=== PATIENT | male | born 1945 | race Caucasian/White ===

== ENCOUNTER 2017-08-10 06:58 | Emergency (ER) | payer MEDICARE, OTHER ==
[2014-09-11 06:08] VITALS: BMI 24.2
[~2017-08-10 06:58] MED LIST: COREG6.25 MG PO; DIOVAN80 MG PO; EFFIENT10 MG PO; HYDROCODONE-APA1 TAB PO; LIPITOR80 MG PO; VITAMIN D3400 UNI1 PO
[2017-08-10 07:50] LABS: BASOPHILS 0.2 % (0-2); EOSINOPHILS 3.2 % (0-7); HEMOGLOBIN 15.6 g/dL (13.5-17.5); IMMATURE GRANULOCYTES 0.2 % (0-5); LYMPHOCYTES 23.6 % (15-50); MCH 32.2 pg (26.0-34.0); MCHC 34.7 g/dL (31.0-37.0); MEAN PLATELET VOLUME 10.9 fL (7.4-10.4); MONOCYTES 11.9 % (2-11); NEUTROPHILS 60.9 % (40-80); PLATELET COUNT 155 10x3/uL (130-400); RBC 4.84 10x6/uL (4.20-6.10); RDW 13.2 % (11.5-14.5)
[2017-08-10 08:02] LABS: ALBUMIN 3.6 g/dL (3.4-5.0); ANION GAP 13.2 mmol/L (8-16); BILIRUBIN - TOTAL 0.72 mg/dL (0.2-1.3); CALCIUM 9.4 mg/dL (8.5-10.1); CREATININE - SERUM 1.1 mg/dL (0.6-1.3); POTASSIUM - SERUM 4.2 mmol/L (3.5-5.1); PROTEIN - SERUM 7.6 g/dL (6.4-8.2)
[2017-08-10 08:14] LABS: APPEARANCE HAZY (CLEAR); BILIRUBIN NEGATIVE (NEGATIVE); COLOR YELLOW (YELLOW); GLUCOSE NEGATIVE (NEGATIVE); KETONE NEGATIVE (NEGATIVE); NITRITE NEGATIVE (NEGATIVE); PROTEIN NEGATIVE (NEGATIVE); SPECIFIC GRAVITY 1.015 (1.005-1.020); UROBILINOGEN NORMAL (NORMAL)
[2017-08-11] MEDS ORDERED: TIROSINT25 MCG PO (05:57)
== END 2017-08-10 09:32 | disposition home or self-care (01) ==
LOC: D.ER 06:58
PROVIDERS: Emergency Medicine
DX: K57.90 Diverticulosis of intestine, part unspecified, without perforation or abscess without bleeding (principal)

== ENCOUNTER 2017-08-10 12:47 | Inpatient (IN) | payer MEDICARE, OTHER ==
[~2017-08-10] VITALS: Ht 182.9 cm; Wt 75.1 kg
--- NOTE | ~2017-08-10 | PRO ---
PATIENT:MARIA G COLEMAN MEDICAL RECORD: [id number] : 43 LOCATION:D. D.2129 ADMISSION DATE: 08/10/17 PROCEDURE PERFORMED BY: SUSAN GORE MD DATE OF PROCEDURE: 08/11/2017 PROCEDURE: Fiberoptic bronchoscopy. INDICATION: Mr. Coleman is a 72-year-old gentleman who came in with hematemesis and nausea and vomiting. Now, the patient is orally intubated. The patient has greenish, yellowish pustular secretions. Fiberoptic bronchoscopy was carried out to inspect the airway for any aspiration as well to obtain specimen for culture and sensitivity. DESCRIPTION OF PROCEDURE: Fiberoptic bronchoscope was easily passed through the ET tube. The patient is intubated, just with a 7-mm ET tube. The main laureen was sharp. There was fresh clotted blood in the right main bronchus. There are no active bleeding. There were thick yellowish secretion on the right side. The subsegment to the right upper lobe, right middle lobe, right lower lobe within normal range. No endobronchial lesion was seen. The left main bronchus was normal. There was no foreign body was seen. There were thick yellowish secretions. The segment to the left upper lobe lingula, left lower lobe within normal range. No endobronchial lesion was seen. Specimen washing was obtained and sent for routine culture and sensitivity, AFB and fungus, and cytology. TRANSINT:[id number] Voice Confirmation ID: [id number] DOCUMENT ID: [id number] SUSAN GORE MD at 1340 CC: REECE PRUITT [id number] DICTATION DATE: 08/11/171743 BATON TWIRLER: 08/11/17 1835 DIS IN 08/16/17 [facility] [address] [place] [address]
--- NOTE | ~2017-08-10 | HP ---
PATIENT: MARIA G HERNANDEZ MEDICAL RECORD: [id number] ACCOUNT: [id number] LOCATION:[facility] D.2311 : 43 ADMISSION DATE: 08/10/17 HISTORY AND PHYSICAL EXAMINATION REASON FOR ADMISSION: Abdominal pain with hematemesis. HISTORY OF PRESENT ILLNESS: The patient is a 72-year-old male with no prior history of peptic ulcer disease who said he has been having some abdominal discomfort off and on, usually late at night for several months. He has had no change in stools or blood per rectum or dyspepsia. He has symptoms of gallbladder problems. He stated he woke up this morning about 07:00 a.m. and the pain was more severe in his epigastric area radiating around into his back and the mid spine. He came to the Emergency Room, was evaluated there with normal CBC and a CT scan that showed him to be constipated. He was sent home with laxatives. He said he had a bowel movement when he returned home that was normal and the pain became worse and he came back to the Emergency Room. While in the waiting area of the Emergency Room, he developed nausea and went into the bathroom and vomited jose bloody states. It was not confirmed by medical personnel, but he told the ER doctor this. That reason he has been now admitted into the ER to be admitted into the hospital for possible bleeding peptic ulcer. His blood pressure has been stable and he has followup H&H has not dropped as yet. He has no prior history of peptic ulcer disease, though does admit to late night dyspepsia. He is not alcohol drinker either. PAST HISTORY: CAD with PTCA in the past and restenosis for which he has been on Effient long-term. History of remote acute myocardial infarction, BPH, diverticulitis, dyslipidemia, erectile dysfunction, hypothyroidism, ophthalmic migraine, and gallbladder sludge. SURGICAL HISTORY: Hernia repair, lumbar laminectomy, and left inguinal hernia repair with mesh in 2015. FAMILY HISTORY: Father at age 96, he had CAD, prostate cancer. Mother with history of CAD, hypertension. SOCIAL HISTORY: Socially, he is a nonsmoker, nondrinker, retired colonel. He is to his second . IMMUNIZATION HISTORY: He has had Prevnar 13 and Fluzone this year. HOME MEDICATIONS: Valsartan 80 mg a day, atorvastatin 40 mg at bedtime, Coreg 6.25 mg p.o. b.i.d., Maxalt-[employer] 5 mg dissolved on tongue p.r.n. headache, vitamin D 400 units p.o. daily, levothyroxine 25 mcg p.o. q.a.m. a.c., MiraLax powder 17 grams p.o. daily for constipation, Viagra 25 mg p.r.n. intercourse, and Effient 10 mg p.o. daily. ALLERGIES: None mentioned. REVIEW OF SYSTEMS: GENERAL: He has felt well. No fever. HEENT: No recent visual change, sinus congestion, sore throat or hearing difficulty. He does wear glasses to read. RESPIRATORY: No SOB, cough, or hemoptysis. CARDIAC: No exertional chest pain, claudication, or edema. HISTORY AND PHYSICAL [id number] MARIA G HERNANDEZ GASTROINTESTINAL: As above. No recent solid food dysphagia or reflux symptoms or melenic stools. He states he did vomit bright red blood in the ED this morning. He has had nocturnal dyspepsia. He has had a history of gallbladder symptoms he states, but he has not been diagnosed with gallbladder disease. MUSCULOSKELETAL: He has lumbago without sciatica. GENITOURINARY: He has nocturia once or twice nightly. He has mild ED, response to Viagra. INTEGUMENTARY: No rash or itching. PSYCHIATRIC: Denies depress mood. PHYSICAL EXAMINATION: VITAL SIGNS: Blood pressure is 110/70, heart rate is 80 and regular, and O2 sat is 96% on room air. HEENT: Normocephalic. Eyes are clear. Pupils are reactive. EOMI. NECK: No bruits or masses. CHEST: Clear. HEART: Regular without murmur. PMI appropriate. ABDOMEN: Minimally tender in the epigastrium without rebound. Bowel sounds are active. Stool has been sent for occult blood. EXTREMITIES: No CC&E. NEUROLOGIC: Oriented to person, place, and time. Cranial nerves intact. Gait is normal. LABORATORY DATA AND DIAGNOSTIC STUDIES: His H&H is 15 and 44.6. White count 10,000, and platelet count 165,000. INR is 1.05. BMP is pending. CT of the abdomen and pelvis shows nonobstructive renal calculi bilaterally, diverticulosis throughout the descending and sigmoid colon, aortic atherosclerosis, degenerative disk changes in the lumbar spine. Chest x-ray shows evidence of previous granulomatous disease. ASSESSMENT: 1. Epigastric abdominal pain with witnessed hematemesis. 2. Coronary artery disease, on Effient. 3. Hypertension. 4. Hyperlipidemia. 5. Hypothyroidism. 6. Osteoarthritis of lumbar spine. 7. Benign prostatic hypertrophy. PLAN: The patient will be admitted to the ICU per Dr. Echeverria's request from GI. She has requested the patient be given IV platelets. He is on Protonix drip currently. Further workup pending clinical course. EGD will be done per her schedule. TRANSINT:[id number] Voice Confirmation ID: [id number] DOCUMENT ID: [id number] HISTORY AND PHYSICAL [id number] MARIA G HERNANDEZ TIMOTHY MD at 1437 CC: [id number] DICTATION DATE: 08/10/17 1735 AIRFREIGHT LOADING SUPERVISOR: 08/10/17 1824 ADM IN [facility] [address] [place] [address]
--- NOTE | ~2017-08-10 | CN ---
PATIENT NAME:MARIA G COLEMAN MEDICAL RECORD: [id number] : 43 LOCATION:. D.2129 ADMIT DATE: 08/10/17 ACCOUNT: [id number] CONSULTING PHYSICIAN: SUSAN GORE MD REFERRING PHYSICIAN: REECE PRUITT MD DATE OF CONSULTATION: 08/11/2017 CONSULT REQUESTING PHYSICIAN: Dina Echeverria MD REASON FOR CONSULTATION: Vent management. HISTORY OF PRESENT ILLNESS: Mr. Coleman is a 72-year-old gentleman, who came into the ER with large volume of throwing blood. The patient was taken to the GI lab and found out he has Rita-Cullen tear and that was injected. Post procedure, the patient was very lethargic and the patient was intubated for airway protection. Now, the patient orally intubated and sedated. The history was taken by reviewing the patient's chart, talking to the nursing staff. REVIEW OF SYSTEMS: As in history of present illness. PAST MEDICAL HISTORY: 1. Coronary artery disease. 2. History of DE. 3. History of skin cancer. PAST SURGICAL HISTORY: He had back surgery. He had cardiac catheterization and stent placement. ALLERGIES: There are no known drug allergies. MEDICATIONS: [employer] is reviewed. PERSONAL AND SOCIAL HISTORY: Smoking history unknown. Drinking history unknown. FAMILY HISTORY: Significant for cancer and cardiovascular diseases. PHYSICAL EXAMINATION: GENERAL: Now, the patient is orally intubated and sedated. VITAL SIGNS: The blood pressure 118/65, pulse is 67, respiration is 18, temperature is 99. SpO2 is 99% on assist control, 40% oxygen, mechanical ventilation. HEENT: Conjunctiva is pink. Sclerae nonicteric. Pupils equal, round, and reactive. NECK: Neck is supple. No JVD. CHEST: There is no wheeze. No rales. HEART: Rhythm regular, normal sound. No murmur. ABDOMEN: Abdomen is soft. Bowel sounds present. No hepatosplenomegaly. RECTAL: Deferred. EXTREMITIES: No cyanosis, no clubbing, no pedal edema. SKIN: The skin is warm. Normal turgor. CENTRAL NERVOUS SYSTEM: The patient is awake and alert. There is no obvious cranial nerve abnormality. CHEST RADIOGRAPH: There are bibasilar infiltrates. CONSULT REPORT [id number] MARIA G COLEMAN LABORATORY DATA: CBC: The WBC is 13.4, hemoglobin is 13.2, hematocrit is 38.7, and the platelet count 166. Chemistry: Sodium 140, potassium is 4, BUN is 28, creatinine 1.1, glucose 112. ABG: The pH is 7.42, pCO2 is 33.2, pO2 is 121. This was done on 50% oxygen, mechanical ventilation. IMPRESSION: 1. Acute hypoxic respiratory failure post procedure. 2. Bibasilar infiltrates, possible aspiration pneumonia at the time of vomiting blood and procedure. 3. Upper gastrointestinal bleed secondary to Rita-Cullen tear. 4. Anemia secondary to gastrointestinal bleed. 5. Coronary artery disease. 6. Leukocytosis. RECOMMENDATIONS: 1. We will continue the mechanical ventilation today. Start trying to wean him in the morning. Start him on empiric Zosyn. 2. Continue Protonix drip. 3. Deep vein thrombosis prophylaxis. 4. Follow up labs and chest radiograph. Dr. Echeverria, thank you for involving me in the care of Mr. Coleman. TRANSINT:[id number] Voice Confirmation ID: [id number] DOCUMENT ID: [id number] SUSAN GORE MD at 1340 CC: DINA ECHEVERRIA [id number] DICTATION DATE: 08/11/17 1030 PRINTER REPAIR TECHNICIAN: 08/11/17 1052 DIS IN 08/16/[address] [address]
[2017-08-10 13:56] LABS: BASOPHILS 0.1 % (0-2); EOSINOPHILS 0.1 % (0-7); HEMATOCRIT 44.6 % (42.0-54.0); HEMOGLOBIN 15.5 g/dL (13.5-17.5); IMMATURE GRANULOCYTES 0.2 % (0-5); LYMPHOCYTES 7.9 % (15-50); MCH 32.3 pg (26.0-34.0); MCHC 34.8 g/dL (31.0-37.0); MCV 92.9 fL (80.0-100.0); MEAN PLATELET VOLUME 11.4 fL (7.4-10.4); MONOCYTES 5.7 % (2-11); PLATELET COUNT 165 10x3/uL (130-400); RDW 13.2 % (11.5-14.5)
[2017-08-10 13:59] LABS: WBC 10.2 10x3/uL (4.8-10.8)
[2017-08-10 14:06] LABS: INR 1.05 (0.85-1.17); PROTIME 13.3 SECONDS (11.6-15.0)
[2017-08-10 18:20] LABS: HEMATOCRIT 38.3 % (42.0-54.0); HEMOGLOBIN 13.2 g/dL (13.5-17.5)
[2017-08-10 19:59] VITALS: BP 110/77; BMI 23.2
[2017-08-10 20:00] VITALS: BP 150/92
[2017-08-10 21:00] VITALS: BP 148/87
[2017-08-10 22:00] VITALS: BP 124/73
[2017-08-10 23:00] VITALS: BP 120/75
[2017-08-10 23:54] LABS: HEMATOCRIT 40.4 % (42.0-54.0); HEMOGLOBIN 13.7 g/dL (13.5-17.5)
[2017-08-11] VITALS (24 sets, daily range): BP systolic 108–150; BP diastolic 58–96; BMI 22.8
[2017-08-11 03:56] LABS: BASOPHILS 0 % (0-2); EOSINOPHILS 0.1 % (0-7); HEMATOCRIT 38.7 % (42.0-54.0); HEMOGLOBIN 13.2 g/dL (13.5-17.5); IMMATURE GRANULOCYTES 0.2 % (0-5); LYMPHOCYTES 9.3 % (15-50); MCH 31.5 pg (26.0-34.0); MCHC 34.1 g/dL (31.0-37.0); MCV 92.4 fL (80.0-100.0); MEAN PLATELET VOLUME 10.7 fL (7.4-10.4); MONOCYTES 16.4 % (2-11); PLATELET COUNT 166 10x3/uL (130-400); RBC 4.19 10x6/uL (4.20-6.10); RDW 14.3 % (11.5-14.5)
[2017-08-11 03:57] LABS: WBC 13.4 10x3/uL (4.8-10.8)
[2017-08-11 04:23] LABS: BILIRUBIN - TOTAL 0.84 mg/dL (0.2-1.3); CALCIUM 8.5 mg/dL (8.5-10.1); CREATININE - SERUM 1.1 mg/dL (0.6-1.3); PROTEIN - SERUM 6.4 g/dL (6.4-8.2)
[2017-08-11] MEDS ORDERED: TIROSINT25 MCG PO (05:57)
[2017-08-12] VITALS (24 sets, daily range): BP systolic 105–148; BP diastolic 60–83; Ht 182.9 cm; Wt 75.1 kg
[2017-08-12 04:18] LABS: BASOPHILS 0.1 % (0-2); EOSINOPHILS 0.3 % (0-7); HEMATOCRIT 37.5 % (42.0-54.0); HEMOGLOBIN 12.8 g/dL (13.5-17.5); IMMATURE GRANULOCYTES 0.3 % (0-5); LYMPHOCYTES 9.6 % (15-50); MCH 31.1 pg (26.0-34.0); MCHC 34.1 g/dL (31.0-37.0); MCV 91.2 fL (80.0-100.0); MEAN PLATELET VOLUME 10.9 fL (7.4-10.4); NEUTROPHILS 75.7 % (40-80); PLATELET COUNT 154 10x3/uL (130-400); RBC 4.11 10x6/uL (4.20-6.10); RDW 14.5 % (11.5-14.5); WBC 14.7 10x3/uL (4.8-10.8)
[2017-08-12 04:21] LABS: ANION GAP 13.6 mmol/L (8-16); CALCIUM 8.4 mg/dL (8.5-10.1); CARBON DIOXIDE 23.1 mmol/L (21.0-32.0); CREATININE - SERUM 1.2 mg/dL (0.6-1.3); POTASSIUM - SERUM 3.7 mmol/L (3.5-5.1)
[2017-08-12 19:08] LABS: AFB SPECIMEN PROCESSING Concentration (())
[2017-08-13] VITALS (14 sets, daily range): BP systolic 106–135; BP diastolic 65–82
[2017-08-13 03:44] LABS: BASOPHILS 0.1 % (0-2); EOSINOPHILS 3.2 % (0-7); HEMATOCRIT 38.3 % (42.0-54.0); IMMATURE GRANULOCYTES 0.3 % (0-5); LYMPHOCYTES 13.9 % (15-50); MCH 31.6 pg (26.0-34.0); MCHC 33.9 g/dL (31.0-37.0); MEAN PLATELET VOLUME 10.9 fL (7.4-10.4); MONOCYTES 11.9 % (2-11); NEUTROPHILS 70.6 % (40-80); PLATELET COUNT 136 10x3/uL (130-400); RBC 4.11 10x6/uL (4.20-6.10); RDW 14.3 % (11.5-14.5); WBC 11.8 10x3/uL (4.8-10.8)
[2017-08-13 03:50] LABS: MCV 93.2 fL (80.0-100.0)
[2017-08-13 03:55] LABS: ANION GAP 12.8 mmol/L (8-16); CALCIUM 8.8 mg/dL (8.5-10.1); CARBON DIOXIDE 26.2 mmol/L (21.0-32.0); CREATININE - SERUM 1.2 mg/dL (0.6-1.3)
[2017-08-14 00:30] VITALS: BP 125/69
[2017-08-14 06:24] VITALS: BP 137/71
[2017-08-14 08:21] VITALS: BP 147/67
[2017-08-14 10:06] LABS: BASOPHILS 0 % (0-2); EOSINOPHILS 1.8 % (0-7); HEMATOCRIT 36.2 % (42.0-54.0); HEMOGLOBIN 12.5 g/dL (13.5-17.5); IMMATURE GRANULOCYTES 0.2 % (0-5); LYMPHOCYTES 9.9 % (15-50); MCH 31.9 pg (26.0-34.0); MCHC 34.5 g/dL (31.0-37.0); MCV 92.3 fL (80.0-100.0); MEAN PLATELET VOLUME 10.4 fL (7.4-10.4); MONOCYTES 17.2 % (2-11); NEUTROPHILS 70.9 % (40-80); PLATELET COUNT 148 10x3/uL (130-400); RBC 3.92 10x6/uL (4.20-6.10); RDW 13.7 % (11.5-14.5); WBC 9.1 10x3/uL (4.8-10.8)
[2017-08-14 12:26] VITALS: BP 149/71
[2017-08-14 13:13] LABS: FUNGUS STAIN Final report (())
[2017-08-14 15:26] VITALS: BP 125/67
[2017-08-14 20:00] VITALS: BP 126/67
[2017-08-15] VITALS: BP 102/62
[2017-08-15 04:00] VITALS: BP 128/70
[2017-08-15 07:54] VITALS: BP 141/70
[2017-08-15 10:41] VITALS: BP 138/73
[2017-08-15 15:15] VITALS: BP 142/76
[2017-08-15 20:00] VITALS: BP 142/71
[2017-08-16] VITALS: BP 125/67
[2017-08-16 04:00] VITALS: BP 130/66
[2017-08-16 06:41] LABS: HEMATOCRIT 35.2 % (42.0-54.0); MCHC 34.1 g/dL (31.0-37.0); RBC 3.87 10x6/uL (4.20-6.10); RDW 13.5 % (11.5-14.5); WBC 7.5 10x3/uL (4.8-10.8)
[2017-08-16 06:48] LABS: PLATELET COUNT 182 10x3/uL (130-400)
[2017-08-16 06:54] LABS: CALC OSMOLALITY 276 mosm/kg (275-300); CALCIUM 8.7 mg/dL (8.5-10.1); CARBON DIOXIDE 25.9 mmol/L (21.0-32.0); CHLORIDE - SERUM 104 mmol/L (98-107); GLUCOSE 100 mg/dL (74-106); POTASSIUM - SERUM 3.6 mmol/L (3.5-5.1); SODIUM 138 mmol/L (136-145); UREA NITROGEN 15 mg/dL (7-18); eGFR NON AFRICAN AMERICAN 78 mL/min (90-120)
[2017-08-16] MEDS ORDERED: GUAIFENESI100 MG/5 M NG (07:31)
[2017-08-16] MEDS ORDERED: CARAFATE1 G/10 ML PO (07:32)
[2017-08-16] MEDS ORDERED: PROTONIX40 MG PO (07:33)
[2017-08-16] MEDS ORDERED: AUGMENTIN 500-11 TA1 PO (07:38)
[2017-08-16 07:41] LABS: ANISOCYTOSIS OCC; EOSINOPHILS 4 % (0-7); LYMPHOCYTES 17 % (15-50); MONOCYTES 21 % (2-11); NEUTROPHILS 56 % (40-80); PLATELET ESTIMATE NORMAL
[2017-08-16 07:54] VITALS: BP 133/71
[2017-09-08 17:11] LABS: FUNGUS MYCOLOGY CULTURE Final report (())
[2017-10-03 10:22] LABS: ACID FAST CULTURE Negative (()); ACID FAST SMEAR Negative (())
== END 2017-08-16 11:21 | disposition home or self-care (01) | DRG 208 ==
LOC: D.ER 12:47 → D.EDHOLD 15:26 → D.ICU 15:26 → D.M2 15:26 → D.ICU 19:31 → D.M2 08-13 17:00
PROVIDERS: Emergency Medicine; Family Medicine; Internal Medicine Gastroenterology
PROC: 5A1945Z Respiratory Ventilation, 24-96 Consecutive Hours (ICD-10-PCS; 2017-08-10)
PROC: 3E0G8GC Introduction of Other Therapeutic Substance into Upper GI, Via Natural or Artificial Opening Endoscopic (ICD-10-PCS; principal; 2017-08-11)
PROC: 0W3P8ZZ Control Bleeding in Gastrointestinal Tract, Via Natural or Artificial Opening Endoscopic (ICD-10-PCS; 2017-08-11)
PROC: 0BD38ZX Extraction of Right Main Bronchus, Via Natural or Artificial Opening Endoscopic, Diagnostic (ICD-10-PCS; 2017-08-11)
DX: J69.0 Pneumonitis due to inhalation of food and vomit (principal); K22.6 Gastro-esophageal laceration-hemorrhage syndrome; J95.821 Acute postprocedural respiratory failure; J98.11 Atelectasis; D62 Acute posthemorrhagic anemia; K44.9 Diaphragmatic hernia without obstruction or gangrene; M47.816 Spondylosis without myelopathy or radiculopathy, lumbar region; I25.10 Atherosclerotic heart disease of native coronary artery without angina pectoris; Z95.5 Presence of coronary angioplasty implant and graft; N40.0 Benign prostatic hyperplasia without lower urinary tract symptoms; E78.5 Hyperlipidemia, unspecified; E03.9 Hypothyroidism, unspecified; K22.2 Esophageal obstruction

== ENCOUNTER 2017-08-21 10:47 | Emergency (ER) | payer MEDICARE, OTHER ==
[2017-08-12 10:50] VITALS: BMI 22.8
[~2017-08-21 10:47] MED LIST changes: +AUGMENTIN 500-11 TA1 PO; +CARAFATE1 G/10 ML PO; +GUAIFENESI100 MG/5 M NG; +PROTONIX40 MG PO; +TIROSINT25 MCG PO
[2017-08-21 11:28] LABS: BASOPHILS 0.3 % (0-2); EOSINOPHILS 3.1 % (0-7); HEMATOCRIT 40.7 % (42.0-54.0); HEMOGLOBIN 14.1 g/dL (13.5-17.5); IMMATURE GRANULOCYTES 0.8 % (0-5); LYMPHOCYTES 17.7 % (15-50); MCHC 34.6 g/dL (31.0-37.0); MCV 92.5 fL (80.0-100.0); MEAN PLATELET VOLUME 10.6 fL (7.4-10.4); MONOCYTES 22.5 % (2-11); NEUTROPHILS 55.6 % (40-80); WBC 7.4 10x3/uL (4.8-10.8)
[2017-08-21 11:31] LABS: PLATELET COUNT 287 10x3/uL (130-400)
[2017-08-21 11:39] LABS: ALBUMIN 3.1 g/dL (3.4-5.0); ALKALINE PHOSPHATASE 109 U/L (46-116); ALT (SGPT) 40 U/L (10-68); CALC OSMOLALITY 277 mosm/kg (275-300); CALCIUM 9.1 mg/dL (8.5-10.1); CARBON DIOXIDE 26.2 mmol/L (21.0-32.0); CHLORIDE - SERUM 103 mmol/L (98-107); CREATININE - SERUM 1.1 mg/dL (0.6-1.3); GLUCOSE 109 mg/dL (74-106); POTASSIUM - SERUM 4.6 mmol/L (3.5-5.1); PROTEIN - SERUM 7.5 g/dL (6.4-8.2); SODIUM 138 mmol/L (136-145); UREA NITROGEN 15 mg/dL (7-18); eGFR NON AFRICAN AMERICAN 70 mL/min (90-120)
[2017-08-21 11:46] LABS: INR 1.05 (0.85-1.17); PROTIME 13.3 SECONDS (11.6-15.0)
[2017-08-21 11:52] LABS: CHOL - HDL RATIO 4.9 ratio (2.3-4.9); CHOLESTEROL, TOTAL 162 mg/dL (0-200); CKMB 0.8 U/L (0.0-3.6); CREATINE KINASE 66 UL (21-232); HDL CHOLESTEROL 33 mg/dL (32-96); LDL CHOLESTEROL 103 mg/dL (0-100); LDL-HDL RATIO 3.1 ratio (1.5-3.5); LIPASE 274 U/L (73-393); MAGNESIUM - SERUM 2.1 mg/dL (1.8-2.4); PRO BNP 237 pg/mL (0-125); THYROID STIMULATING HORMONE 2.93 uIU/mL (0.36-3.74); TRIGLYCERIDE 134 mg/dL (30-200); TROPONIN-I < 0.017 ng/mL (0.000-0.060)
[2017-08-21 12:01] LABS: D-DIMER-QUANTITATIVE 4.16 ug/mLFEU (0.20-0.54)
== END 2017-08-21 14:52 | disposition home or self-care (01) ==
LOC: D.ER 10:47
PROVIDERS: Family Medicine; Nurse Practitioner Family
DX: R07.9 Chest pain, unspecified (principal); R10.13 Epigastric pain; K21.9 Gastro-esophageal reflux disease without esophagitis; E03.9 Hypothyroidism, unspecified

== ENCOUNTER 2017-09-12 11:37 | Observation (INO) | payer MEDICARE, OTHER ==
[~2017-09-12] VITALS: Ht 182.9 cm; Wt 77.3 kg
--- NOTE | ~2017-09-12 | HP ---
PATIENT: MARIA G HERNANDEZ MEDICAL RECORD: [id number] ACCOUNT: [id number] LOCATION:D.MS Garcia2223 : 43 ADMISSION DATE: 09/12/17 HISTORY AND PHYSICAL EXAMINATION REASON FOR ADMISSION: Acute onset of confusion, visual disturbance. HISTORY OF PRESENT ILLNESS: The patient is a 72-year-old male with history of coronary artery disease, who underwent Hemoclips placed in his gastric ulcer on 08/10/17. He has done well since that time from a GI standpoint. Today, he had played pickleball with his , and at about 11 o'clock in the morning, became confused, did not know who she was or where he was. He had no obvious motor deficit, just confusion and trouble with his vision. He came to the Emergency Room with these complaints was seen by Dr. Gonzalez. The family was informed that neurology was not available and they requested to be treated at [facility]. He denies headache at this time. He denies visual change, but will not focus well; and answers questions inappropriately. PAST MEDICAL HISTORY: Recent gastric ulcer with Hemoclips placed on 08/10/17 with upper GI bleed and transfusion. CAD with PTCA in the past and restenosis, for which he had been on Effient until recently; history of remote acute myocardial infarction; BPH; diverticulitis; dyslipidemia; hypothyroidism; ophthalmic migraine; history of gallbladder sludge; erectile dysfunction. SURGICAL HISTORY: Hernia repair, lumbar laminectomy, left inguinal hernia repair with mesh in 2014, Hemoclips placed on gastric bleed on gastric bleeder 08/11/17. FAMILY HISTORY: Mother with history of CAD, hypertension. Father at 96 with CAD, prostate cancer. SOCIAL HISTORY: Nonsmoker. 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 ALLERGIES: None mentioned. HOME MEDICATIONS: Coreg 6.25 mg b.i.d., valsartan 80 mg p.o. daily, aspirin 81 mg a day, levothyroxine 25 mg capsule daily. REVIEW OF SYSTEMS: Obtained from his . GENERAL: He has not been fatigued. HEENT: Visual change appearing acutely today at 11 o'clock. Denies headache. RESPIRATORY: No SOB or cough. CARDIAC: No chest pain or claudication. GI: No nausea, vomiting, change in stools, or blood per rectum. : He has nocturia once nightly. MUSCULOSKELETAL: He has arthralgias in lumbar spine without sciatica. PSYCH: Denies depress mood. NEURO: At this time, he is unsure of where he is. He does not know who his or I am. He has poor eye contact. He has good plate stacker in his upper and lower extremities bilaterally. His gait is normal. His speech is clear but nonsensical and he does not answer questions appropriately. He complains he needs to urinate but does not know what to do at the urinal. INTEGUMENT: Denies itching or rash. HISTORY AND PHYSICAL [id number] MARIA G HERNANDEZ PHYSICAL EXAMINATION: VITAL SIGNS: Temperature 98.5 Fahrenheit orally, pulse 68 and regular, respirations are 20, blood pressure 134/75 with sat of 100% on room air. GENERAL: The patient is awake but disoriented to person, place, and time. He is not combative. HEENT: Normocephalic. Eyes are clear. Pupils reactive. He cannot count 1 or 2 fingers, I am not sure he understands my questions. Ears are clear. NECK: Supple without bruits or masses. CHEST: Clear. HEART: Regular rate without murmur. ABDOMEN: Soft, nontender. Bowel sounds are active. : Deferred. EXTREMITIES: No CC&E. NEUROLOGICAL: He is disoriented to person, place, and time. He speaks but is nonsensical. His speech is not slurred. His plate stacker is equal in upper and lower extremities. Babinski's are negative. Gait is unremarkable. DIAGNOSTIC DATA: CT scan of the brain, noncontrast, shows atrophy with no acute changes. Chest x-ray is unremarkable. Carotid Doppler shows minimal carotid atherosclerosis without significant velocities noted. His blood sugar is 103. His H&H is 14.7 and 44.1 respectively with platelet count of 236,000. INR is 1.01. Electrolytes are normal. Alk phos is 131. Cardiac enzymes are negative. TSH is 2.21. ASSESSMENT: 1. TIA versus CVA. 2. Known CAD with atherosclerosis. 3. Recent upper GI bleed due to gastric ulcer with Hemoclips placed. 4. Hypothyroidism. 5. Essential hypertension. 6. Hyperlipidemia. 7. BPH. PLAN: The patient will be admitted to neuro floor for neuro checks. We will obtain abdominal x-ray to make sure Hemoclips have passed and we will order MRI if Hemoclips are not visualized. Discussed with and son-in-law. Further workup pending clinical course. TRANSINT:[id number] Voice Confirmation ID: [id number] DOCUMENT ID: [id number] REECE PRUITT MD at 0532 CC: [id number] DICTATION DATE: 09/12/171737 EYEWEAR MANUFACTURING SUPERVISOR: 09/12/17 1857 DIS IN 09/13/17 [facility] [address] [place] [address]
--- NOTE | ~2017-09-12 | EC ---
PATIENT:MARIA G HERNANDEZ DATE OF SERVICE: 09/12/17 SEX: M MEDICAL RECORD: [id number] DATE OF : 43 LOCATION:D.MS Garcia222 AGE OF PATIENT: 72 ADMISSION DATE: 09/12/17 REFERRING PHYSICIAN: INTERPRETING PHYSICIAN: AKIN SERRANO MD ECHOCARDIOGRAM REPORT ECHO CHARGES 5 ECHO LIMITED Date: 09/12 CLINICAL DIAGNOSIS: BUBBLE STUDY FOR TIA ECHOCARDIOGRAPHIC MEASUREMENTS (adult normal given) AC root (d.<3.7cm) cm LV Septum d (<1.2 cm> 1.4 cm Valve Excursion cm LV Septum (systole) 1.5 cm Left Atria (s.<4.0cm> 4.4 cm LVPW d(<1.2cm) 1.6 cm RV (d.<2.3cm) cm LVPW (sytole) 14.7 cm LV diastole(<5.6CM) 5.3 cm MV E-F(>70mm/sec) cm LV systole 4.2 cm LVOT Diameter cm MV exc.(>10mm) cm Est.ejection fraction (50-75%) % DOPPLER: LVIT cm/sec A cm/sec E cm/sec LA cm/sec RVSP mmHg LVOT cm/sec AOP1/2T m/s Asc. Ao cm/sec RVOT cm/sec RA cm/sec PA cm/sec AV Gradient Peak mmHg AV Mean mmHg AV Area cm MV Gradient Peak mmHg MV Mean mmHg MV Area cm COMMENTS: Alteration Workroom Supervisor: Jackie NAILS Surfboard Designer: 1 Dr. Serrano TAPE# PACS Pericardial Effusion N DATE OF SERVICE: 09/13/2017 PROCEDURE: Echocardiogram with bubble study. INDICATIONS: CVA. FINDINGS: 1. Left ventricular chamber size is within normal limits. Left ventricular systolic function is normal. Overall ejection fraction estimated at 50%. 2. Left atrium, right atrium, and right ventricular chamber sizes are within ECHOCARDIOGRAM REPORT [id number] MARIA G HERNANDEZ normal limits. 3. Valvular structures have normal structure and motion. 4. Doppler interrogation reveals no significant valvular insufficiency or stenosis. 5. Bubble study was performed. There is no evidence of qici-wd-mfwvh or uaeiz-yb-kjfl shunt. 6. No cardiac source of neurologic emboli. TRANSINT:[id number] Voice Confirmation ID: [id number] DOCUMENT ID: [id number] AKIN SERRANO MD at 1056 CC: [id number] DICTATION DATE: 09/13/17 0938 LADLE PATCHER: 09/13/17 1053 DIS IN 09/13/17 [facility] [id number] [place] [address]
[2017-09-12 11:59] LABS: BASOPHILS 0.3 % (0-2); EOSINOPHILS 3.8 % (0-7); HEMATOCRIT 44.1 % (42.0-54.0); HEMOGLOBIN 14.7 g/dL (13.5-17.5); IMMATURE GRANULOCYTES 0.4 % (0-5); LYMPHOCYTES 25.7 % (15-50); MCH 31.2 pg (26.0-34.0); MCHC 33.3 g/dL (31.0-37.0); MCV 93.6 fL (80.0-100.0); MEAN PLATELET VOLUME 10.9 fL (7.4-10.4); MONOCYTES 10.7 % (2-11); NEUTROPHILS 59.1 % (40-80); PLATELET COUNT 236 10x3/uL (130-400); RBC 4.71 10x6/uL (4.20-6.10); RDW 13.7 % (11.5-14.5); WBC 6.8 10x3/uL (4.8-10.8)
[2017-09-12 12:22] LABS: ALBUMIN 3.5 g/dL (3.4-5.0); ALKALINE PHOSPHATASE 131 U/L (46-116); ALT (SGPT) 27 U/L (10-68); BILIRUBIN - TOTAL 0.47 mg/dL (0.2-1.3); CALC OSMOLALITY 278 mosm/kg (275-300); CALCIUM 9.5 mg/dL (8.5-10.1); CARBON DIOXIDE 27.1 mmol/L (21.0-32.0); CHLORIDE - SERUM 103 mmol/L (98-107); CREATININE - SERUM 1.2 mg/dL (0.6-1.3); GLUCOSE 119 mg/dL (74-106); POTASSIUM - SERUM 4.7 mmol/L (3.5-5.1); PROTEIN - SERUM 8.1 g/dL (6.4-8.2); SODIUM 139 mmol/L (136-145); UREA NITROGEN 12 mg/dL (7-18); eGFR NON AFRICAN AMERICAN 63 mL/min (90-120)
[2017-09-12 12:34] LABS: CKMB 1.5 U/L (0.0-3.6); TROPONIN-I < 0.017 ng/mL (0.000-0.060)
[2017-09-12 12:50] LABS: INR 1.01 (0.85-1.17); PROTIME 12.9 SECONDS (11.6-15.0)
[2017-09-12 19:52] VITALS: BP 124/50; Ht 182.9 cm; Wt 77.3 kg
[2017-09-12 20:00] VITALS: BP 124/50
[2017-09-12 23:56] VITALS: BP 115/57
[2017-09-13 04:00] VITALS: BP 135/69
[2017-09-13 06:03] LABS: BASOPHILS 0.1 % (0-2); EOSINOPHILS 1.3 % (0-7); HEMATOCRIT 36.6 % (42.0-54.0); HEMOGLOBIN 12.2 g/dL (13.5-17.5); IMMATURE GRANULOCYTES 0.3 % (0-5); LYMPHOCYTES 25.8 % (15-50); MCH 30.9 pg (26.0-34.0); MCHC 33.3 g/dL (31.0-37.0); MCV 92.7 fL (80.0-100.0); MEAN PLATELET VOLUME 11.3 fL (7.4-10.4); MONOCYTES 12.8 % (2-11); NEUTROPHILS 59.7 % (40-80); PLATELET COUNT 204 10x3/uL (130-400); RBC 3.95 10x6/uL (4.20-6.10)
[2017-09-13 06:05] LABS: WBC 8.6 10x3/uL (4.8-10.8)
[2017-09-13 06:08] LABS: CALC OSMOLALITY 277 mosm/kg (275-300); CALCIUM 8.6 mg/dL (8.5-10.1); CARBON DIOXIDE 25.5 mmol/L (21.0-32.0); CHLORIDE - SERUM 106 mmol/L (98-107); GLUCOSE 95 mg/dL (74-106); POTASSIUM - SERUM 3.8 mmol/L (3.5-5.1); SODIUM 140 mmol/L (136-145); UREA NITROGEN 11 mg/dL (7-18); eGFR NON AFRICAN AMERICAN 78 mL/min (90-120)
[2017-09-13 08:41] VITALS: BP 121/63
[2017-09-13 11:46] VITALS: BP 176/56
[2017-09-13 16:11] VITALS: BP 118/59
[2017-09-13] MEDS ORDERED: ASPIRIN325 MG PO (17:59)
[2017-09-13] MEDS ORDERED: LIPITOR80 MG PO (18:03)
[2017-09-13] MEDS ORDERED: PEPCID20 MG PO (18:05)
== END 2017-09-13 18:41 | disposition home or self-care (01) ==
LOC: D.ER 11:37 → D.EDHOLD 13:23 → OBSVTIME 13:23 → D.MS 13:30
PROVIDERS: Emergency Medicine; Family Medicine
DX: R41.0 Disorientation, unspecified (principal); G43.909 Migraine, unspecified, not intractable, without status migrainosus; H53.9 Unspecified visual disturbance; I25.10 Atherosclerotic heart disease of native coronary artery without angina pectoris; N40.0 Benign prostatic hyperplasia without lower urinary tract symptoms; E78.5 Hyperlipidemia, unspecified; E03.9 Hypothyroidism, unspecified; I10 Essential (primary) hypertension; I25.2 Old myocardial infarction; R47.01 Aphasia; R42 Dizziness and giddiness; R47.81 Slurred speech

== ENCOUNTER 2018-05-15 | Observation (INO) | payer MEDICARE, OTHER ==
[~2018-05-15] VITALS: Ht 182.9 cm; Wt 79.4 kg
[2018-05-15] VITALS (7 sets, daily range): BP systolic 113–141; BP diastolic 56–78; BMI 23.8
[~2018-05-15] MED LIST changes: +ASPIRIN325 MG PO; +PEPCID20 MG PO
--- NOTE | ~2018-05-15 | MORECARE ---
CASE MANAGEMENT DISCHARGE SUMMARY PATIENT: MARIA G HERNANDEZ UNIT: [id number] ADM DATE: 05/15/18 AGE: 72 : 44 SEX: M ROOM/BED: D.2119 AUTHOR: RULA CELESTE PHYSICIAN: REFERRING PHYSICIAN: REECE PRUITT MD DATE OF SERVICE: 05/21/18 Discharge Plan Patient Name: MARIA G HERNANDEZ [facility] [facility] 1945 Planned Disposition: Home Anticipated Discharge Date: 05/18/18 Discharge Date: 05/18/2018 Expected LOS: 3 Initial Reviewer: [email or web address] Initial Review Date: 05/21/2018 Generated: 05/21/18 12:34 pm Coverage Notice Reviewer: [email or web address] Mago Constantino Notice Issued Date-Time: 05/15/2018 11:35 Notice Type: Medicare Outpatient Observation Notice Notice Delivered To: Patient Relationship to Patient: Self Armoured Car Escort Name: Delivery Method: HAND - Hand Delivered Birgit Days: Prior Verbal Notification: Recipient Understood Notice: Yes Recipient Signature: Yes Med Rec Note Co-signed by Attending: Coverage Notice Comment: VERBAL PERMISSION OBTAINED TO DISCUSS IN THE PRESENCE OF HIS NGUYEN HERNANDEZ. Patient Name: MARI AG HERNANDEZ Page [id number] at 1135 All edits/amendments must be made on the electronic document DICTATION DATE: 05/21/18 113 ANCILLARY SERVICES MANAGER: YAMILKA 05/21/18 1134 RPT#: [id number] DC DATE:05/18/18 STATUS: DIS IN [facility] [address] [place] [address] END OF REPORT
--- NOTE | ~2018-05-15 | OP ---
PATIENT NAME: MARIA G HERNANDEZ MEDICAL RECORD: [id number] :43 LOCATION:D. D.2119 ADMISSION DATE:05/15/18 SURGEON: MART TABOR MD DATE OF OPERATION: 05/17/2018 PREOPERATIVE DIAGNOSES: 1. Acute cholecystitis. 2. Coronary artery disease. 3. Hyperlipidemia. POSTOPERATIVE DIAGNOSES: 1. Acute cholecystitis. 2. Coronary artery disease. 3. Hyperlipidemia. PROCEDURE: Laparoscopic cholecystectomy. SURGEON: Mart Tabor MD REPORT OF PROCEDURE: The patient's abdomen was prepped and draped in sterile fashion. A cutdown was made on the superior aspect of the umbilicus. Vicryls #0 were placed on the fascia bilaterally and the fascia was incised with #15 blade. I then bluntly entered the peritoneal cavity and placed a 12-mm Dustin port. Under direct visualization, a 5-mm trocar was placed in the epigastrium and two more 5-mm trocars were placed in the right subcostal region. The gallbladder was grasped and elevated. The cystic artery and cystic duct were dissected free. These were clipped proximally and distally and ligated in standard fashion. The gallbladder was taken off the liver bed using electrocautery and placed in the right upper quadrant. Any bleeding from the liver bed was then treated with electrocautery. At this point, the ports and insufflation were then removed and the gallbladder was taken out through the umbilicus. Upon removing the gallbladder through the umbilicus, it actually tore and there was a large spillage of bile. There were no stones present. We then irrigated out the umbilicus. The umbilical fascia was then closed with interrupted #0 Vicryls times 3. The wounds were then irrigated out one last time with saline and then infused with 10 mL of 0.25% Marcaine with epinephrine. The skin incisions were all closed with subcutaneous 5-0 Monocryl and dressed appropriately. COMPLICATIONS: None. CONDITION: Stable. ANESTHESIA: General endotracheal and local. BLOOD LOSS: Minimal. TRANSINT:[id number] Voice Confirmation ID: [id number] DOCUMENT ID: [id number] OPERATIVE REPORT [id number] MARIA G HERNANDEZ MART TABOR MD CC: [id number] DICTATION DATE: 05/17/18 152 BANDER: 05/17/18 1837 ADM [place] [address] [place] [address]
--- NOTE | ~2018-05-15 | HP ---
PATIENT: MARIA G HERNANDEZ MEDICAL RECORD: [id number] ACCOUNT: [id number] LOCATION:[address] : 43 ADMISSION DATE: 05/15/18 PCP: REECE PRUITT MD HISTORY AND PHYSICAL EXAMINATION REASON FOR ADMISSION: Postprandial abdominal pain with nausea. HISTORY OF PRESENT ILLNESS: The patient is a 72-year-old male with past history of coronary artery disease, hospitalized in August of this year for nausea, vomiting and Rita-Cullen tear. He was off of his Effient for several months and that was resumed recently by his molder pipe covering. He said he had known he had gallbladder sludge for some time, but he deferred surgery. Over the last week, he has had every other day postprandial qtb-ge-afrvh abdominal discomfort that radiates in his right upper quadrant and back. He feels bloated and nauseated, but sometimes has loose stool. The pain was fairly severe last night after a meal and he came to the ED. He denies fever, recent blood per rectum or vomiting blood. Denies any recent exertional chest pain or dyspnea on exertion. PAST MEDICAL HISTORY: Rita-Cullen tear, 08/2017; history of gastric ulcer with Hemoclips placed, 08/2017; upper GI bleed and transfusion; CAD; PTCA in the past and restenosis for which she has had Effient; history of remote acute myocardial infarction; BPH; diverticulitis; dyslipidemia; hypothyroidism; erectile dysfunction; ophthalmic migraines. PAST SURGICAL HISTORY: Hernia repair; lumbar laminectomy; left inguinal hernia repair with mesh in 2014; Hemoclips placed for gastric bleeder, 08/11/2017. FAMILY HISTORY: Father at 96 with CAD, prostate cancer. Mother with history of CAD, hypertension. SOCIAL HISTORY: Rare wine drinker, nonsmoker, retired colonel. He is to his second . HOME MEDICATIONS: Effient 10 mg p.o. daily; Lipitor 80 mg p.o. with evening meal; Coreg 6.25 mg p.o. b.i.d.; Diovan 80 mg p.o. at bedtime; aspirin 325 mg daily; Pepcid 20 mg p.o. b.i.d.; levothyroxine 25 mcg p.o. every morning, before meals. ALLERGIES: None known. REVIEW OF SYSTEMS: GENERAL: He has felt well until the last week. CONSTITUTIONAL: No recent fever. Good appetite. HEENT: No recent visual change, sinus congestion, sore throat or headache. RESPIRATORY: No SOB or cough, sputum production. CARDIAC: No exertional rest chest pain, claudication, edema or palpitations. GASTROINTESTINAL: Nausea postprandial, but not vomiting. He has had fatty food intolerance with some abdominal distention after eating, okg-zi-egnom abdominal pain radiates in his right upper quadrant and right shoulder. He has had no change in stools or blood per rectum. GENITOURINARY: Has nocturia once nightly. No dysuria plus frequency. MUSCULOSKELETAL: Denies arthralgias. NEUROLOGICAL: No history of stroke, TIA. No recent vascular headaches. Has a history ophthalmic migraine in the past. No memory loss or seizures. INTEGUMENT: No rash, itching or icterus. HISTORY AND PHYSICAL [id number] MRAIA G HERNANDEZ PSYCHIATRIC: Denies depressed mood. PHYSICAL EXAMINATION: VITAL SIGNS: Showed pulse of 59 and regular, respirations of 18, blood pressure 126/68, sat 97% on room air. GENERAL: The patient is alert and oriented. HEENT: Eyes are clear. Pupils are reactive. Mucous membranes unremarkable. NECK: Supple, without bruits or masses. CHEST: Clear. HEART: Regular rate and rhythm. ABDOMEN: Soft, throughout with active bowel sounds. No tenderness. No right upper quadrant tenderness or masses noted. RECTAL: Deferred. EXTREMITIES: No CCE. INTEGUMENT: No rash, icterus or lesions. No petechia. NEUROLOGIC: Oriented to person, place, and time. Cranial nerves are intact. Gait is normal. LABORATORY AND DIAGNOSTIC DATA: White count is 7000, H&H of 16 and 46 respectively with normal diff. Chemistry shows BUN of 27, creatinine of 1.3, glucose of 111 nonfasting, alkaline phosphatase is 143. Liver functions are normal. Lipase is normal. EKG shows sinus bradycardia with mild T-wave inversion laterally. No imaging has been done in the Emergency Room at this time. CT of abdomen and pelvis in August of this year showed nonobstructing calculi in bilateral kidneys, diverticulosis, aortic and pelvic atherosclerosis and normal appearing gallbladder. ASSESSMENT: 1. Abdominal pain. 2. Fatty food intolerance, possible acalculous cholecystitis. 3. History of coronary artery disease, on Effient. 4. History of gastric ulcer with Rita-Cullen tear. 5. Hyperlipidemia. 6. Hypertension. PLAN: The patient will be held n.p.o., placed on IV fluids, obtain gallbladder ultrasound this morning. Surgical consult with Dr. Gtz who he has seen in the past concerning these symptoms. TRANSINT:[id number] Voice Confirmation ID: [id number] DOCUMENT ID: [id number] REECE PRUITT MD at 2114 CC: [id number] DICTATION DATE: 05/15/18745 BEARING PRESS MACHINE OPERATOR: 05/15/18 0932 ADM IN [facility] [address] [place] [address]
[2018-05-15 01:07] LABS: BASOPHILS 0.1 % (0-2); HEMATOCRIT 46.2 % (42.0-54.0); HEMOGLOBIN 16.2 g/dL (13.5-17.5); IMMATURE GRANULOCYTES 0.3 % (0-5); LYMPHOCYTES 18.4 % (15-50); MCH 32.6 pg (26.0-34.0); MCHC 35.1 g/dL (31.0-37.0); MEAN PLATELET VOLUME 10.8 fL (7.4-10.4); MONOCYTES 14.5 % (2-11); NEUTROPHILS 63.7 % (40-80); PLATELET COUNT 181 10x3/uL (130-400); RBC 4.97 10x6/uL (4.20-6.10); RDW 13.1 % (11.5-14.5)
[2018-05-15 01:30] LABS: ALBUMIN 3.4 g/dL (3.4-5.0); ALKALINE PHOSPHATASE 143 U/L (46-116); ALT (SGPT) 19 U/L (10-68); BILIRUBIN - TOTAL 0.33 mg/dL (0.2-1.3); CALC OSMOLALITY 284 mosm/kg (275-300); CALCIUM 8.8 mg/dL (8.5-10.1); CARBON DIOXIDE 29.4 mmol/L (21.0-32.0); CHLORIDE - SERUM 105 mmol/L (98-107); CREATININE - SERUM 1.3 mg/dL (0.6-1.3); GLUCOSE 111 mg/dL (74-106); POTASSIUM - SERUM 4.3 mmol/L (3.5-5.1); PROTEIN - SERUM 7.8 g/dL (6.4-8.2); SODIUM 140 mmol/L (136-145); UREA NITROGEN 27 mg/dL (7-18); eGFR NON AFRICAN AMERICAN 57 mL/min (90-120)
[2018-05-15 01:33] LABS: LIPASE 321 U/L (73-393); TROPONIN-I < 0.017 ng/mL (0.000-0.060)
[2018-05-15] MEDS ORDERED: EFFIENT10 MG PO (04:11)
[2018-05-16] VITALS: BP 101/58
[2018-05-16 04:00] VITALS: BP 112/60
[2018-05-16 05:50] LABS: BASOPHILS 0.2 % (0-2); EOSINOPHILS 2.9 % (0-7); HEMATOCRIT 45.7 % (42.0-54.0); HEMOGLOBIN 15.8 g/dL (13.5-17.5); IMMATURE GRANULOCYTES 0.2 % (0-5); LYMPHOCYTES 24.4 % (15-50); MCH 32.3 pg (26.0-34.0); MCHC 34.6 g/dL (31.0-37.0); MCV 93.5 fL (80.0-100.0); MEAN PLATELET VOLUME 11.3 fL (7.4-10.4); MONOCYTES 17.5 % (2-11); NEUTROPHILS 54.8 % (40-80); PLATELET COUNT 171 10x3/uL (130-400); RBC 4.89 10x6/uL (4.20-6.10); RDW 13.2 % (11.5-14.5); WBC 6.5 10x3/uL (4.8-10.8)
[2018-05-16 06:15] LABS: ALBUMIN 3.3 g/dL (3.4-5.0); ANION GAP 12.9 mmol/L (8-16); BILIRUBIN - DIRECT 0.26 mg/dL (0.00-0.30); BILIRUBIN - INDIRECT 0.87 mg/dL (0.00-1.00); BILIRUBIN - TOTAL 1.13 mg/dL (0.2-1.3); CALCIUM 8.7 mg/dL (8.5-10.1); CARBON DIOXIDE 26.1 mmol/L (21.0-32.0); CREATININE - SERUM 1.2 mg/dL (0.6-1.3); PROTEIN - SERUM 7.5 g/dL (6.4-8.2)
[2018-05-16 07:57] VITALS: BP 134/97
[2018-05-16 11:34] VITALS: BP 107/61
[2018-05-16 11:52] VITALS: Ht 182.9 cm; Wt 79.4 kg
[2018-05-16 16:07] VITALS: BP 116/63
[2018-05-16 20:00] VITALS: BP 115/65
[2018-05-17] VITALS: BP 124/70
[2018-05-17] MEDS ORDERED: LIPITOR40 MG PO (03:37)
[2018-05-17 04:00] VITALS: BP 149/83
[2018-05-17 07:54] VITALS: BP 131/72
[2018-05-17 11:02] VITALS: BP 126/74
[2018-05-17] MEDS ORDERED: NORCO-10 PO (15:28)
[2018-05-17 16:30] VITALS: BP 158/85
[2018-05-17 20:00] VITALS: BP 128/70
[2018-05-18 04:00] VITALS: BP 135/75
[2018-05-18 11:03] VITALS: BP 114/61
== END 2018-05-18 11:42 | disposition home or self-care (01) ==
LOC: D.ER → D.M2 03:43 → OBSVTIME 03:43 → D.M2 03:43
PROVIDERS: Family Medicine
DX: K80.00 Calculus of gallbladder with acute cholecystitis without obstruction (principal); I25.10 Atherosclerotic heart disease of native coronary artery without angina pectoris; Z95.5 Presence of coronary angioplasty implant and graft; E78.5 Hyperlipidemia, unspecified; N40.0 Benign prostatic hyperplasia without lower urinary tract symptoms; I10 Essential (primary) hypertension; E03.9 Hypothyroidism, unspecified; N52.9 Male erectile dysfunction, unspecified

== ENCOUNTER → 2019-01-09 08:39 | Outpatient (CLI) | payer MEDICARE, OTHER ==
[2018-05-16 11:52] VITALS: BMI 23.7
[~2019-01-09 08:39] MED LIST changes: +LIPITOR40 MG PO; +NORCO-10 PO
== END | disposition home or self-care (01) ==
LOC: D.HCCARDIO 08:39
PROVIDERS: ATTEND Internal Medicine Interventional Cardiology
DX: I25.10 Atherosclerotic heart disease of native coronary artery without angina pectoris (principal)

== ENCOUNTER → 2020-01-15 08:03 | Outpatient (CLI) | payer MEDICARE, OTHER ==
[2018-05-16 11:52] VITALS: BMI 23.7
--- NOTE | ~2020-01-15 | EC ---
PATIENT:MARIA G HERNANDEZ DATE OF SERVICE: 01/15/20 SEX: M MEDICAL RECORD: [id number] DATE OF : 43 LOCATION:[facility] AGE OF PATIENT: 74 ADMISSION DATE: 01/15/20 REFERRING PHYSICIAN: INTERPRETING PHYSICIAN: EDUARDO FOX MD ECHOCARDIOGRAM REPORT ECHO CHARGES 4 ECHO COMPLETE Date: 01/15/20 CLINICAL DIAGNOSIS: CAD/CARDIOMYOPATHY/ANGINA (HX AO.SCL/MR/TR) ECHOCARDIOGRAPHIC MEASUREMENTS (adult normal given) AC root (d.<3.7cm) 3.4 cm LV Septum d (<1.2 cm> 1.2 cm Valve Excursion 1.9 cm LV Septum (systole) 1.6 cm Left Atria (s.<4.0cm> 4.1 cm LVPW d(<1.2cm) 1.3 cm RV (d.<2.3cm) 3.3 cm LVPW (sytole) 1.6 cm LV diastole(<5.6CM) 5.2 cm MV E-F(>70mm/sec) cm LV systole 3.6 cm LVOT Diameter 2.1 cm MV exc.(>10mm) 1.6 cm Est.ejection fraction (50-75%) % DOPPLER: LVIT cm/sec A 65.0 cm/sec E 50.0 cm/sec LA cm/sec RVSP 25 mmHg LVOT 76 cm/sec AOP1/2T m/s Asc. Ao 109 cm/sec RVOT cm/sec RA cm/sec PA 115 cm/sec AV Gradient Peak 4.78 mmHg AV Mean 2.53 mmHg AV Area 2.4 cm MV Gradient Peak 1.99 mmHg MV Mean 0.91 mmHg MV Area cm COMMENTS: Freight Team Associate: 2 YONIS NAILS Film And Video Graphics Designer: 3 Dr. Hightower TAPE# PACS Pericardial Effusion N DATE OF SERVICE: Adequate 2D, color flow imaging, spectral Doppler and M-mode. Mild LVH. LV internal dimension is normal. Wall motion appears very mildly globally hypo with EF at lower limits of normal at 50%. Aortic valve is sclerosed without stenosis by Doppler interrogation. Left atrium minimally dilated at 4.1 cm. Mitral valve shows no prolapse. Trace MR. Right-sided chambers are grossly normal. Trace TR. ECHOCARDIOGRAM REPORT [id number] MARIA G HERNANDEZ TRANSINT:[id number] Voice Confirmation ID: [id number] DOCUMENT ID: [id number] EDUARDO FOX MD CC: [id number] DICTATION DATE: 01/16/20 1324 MEDICAL DEVICE SALES CONSULTANT: 01/16/20 232 DEP CLI 01/15/20 [place] [id number] [place] [id number]
== END | disposition home or self-care (01) ==
LOC: D.HCCARDIO 08:03 → D.HCCECHO 09:00
PROVIDERS: ATTEND Internal Medicine Cardiovascular Disease
DX: I25.10 Atherosclerotic heart disease of native coronary artery without angina pectoris (principal)

== ENCOUNTER 2020-01-29 06:21 | Day surgery (SDC) | payer MEDICARE, OTHER ==
[~2020-01-29] VITALS: Ht 182.9 cm; Wt 83.0 kg
--- NOTE | ~2020-01-29 | HEMODYNAMI ---
PATIENT:MARIA G HERNANDEZ MEDICAL RECORD: [id number] : 43 LOCATION:[facility] ADMISSION DATE: 01/29/20 Generatedon:01/29/20208:55 Patient name: MARIA G HERNANDEZ Patient #: [id number] SSN: : 1945 Date of study: 01/29/2020 Page: Of Hemodynamic Procedure Report Patient Data Patient Demographics Procedure consent was obtained First Name: MARIA G Gender: Male Last Name: MARY : 1945 Middle Initial: L Age: 74 year(s) Patient #: [id number] Race: Unknown Additional ID: [id number] Contact details Address: [address] [place] [address] [facility] State: [place] City: [place] Zip code: [address] Past Medical History Allergies: No known allergies Admission Admission Data Admission Date: 01/29/2020 Admission Time: 6:21 Procedure Procedure Types Cath Procedure Diagnostic Procedure LHC LHC w/Coronaries Sedation Charges Moderate Sedation up to 15 minutes Procedure Description Procedure Date Procedure Date: 01/29/2020 Procedure Start Time: 8:38 Procedure End Time: 8:52 Procedure Staff Name Function Ahsan Guillory MD Performing Physician Erlinda Sharp RN Nurse Nhi Spear RT Home Economist Consumer Service Bianka Alexandra RT Scrub Yael Juarez RT Monitor Procedure Data Cath Procedure Fluoroscopy Diagnostic fluoroscopy Total fluoroscopy Time: 0 time: 0 min min Diagnostic fluoroscopy Total fluoroscopy dose: 606 dose: 606 mGy mGy Contrast Material Contrast Material Type Amount (ml) Isovue 300 68 Entry Location Entry Primary Successful Side Size Upsize Upsize Entry Closure Guillen ccessful Closure Location (Fr) 1 (Fr) 2 (Fr) Remarks Device Remarks Radial Right 6 Fr Mechanical artery Short Compression Estimated blood loss: 10 ml Diagnostic catheters Device Type Used For End Catheter Placement DIAGNOSTIC [place] 110cm 5 Procedure Fr catheter ([id number]) Procedure Complications No complications Procedure Medications Medication Administration Route Dosage 0.9% NaCl I.V. 100 ml/hr Oxygen etCO2 Nasal cannula 2 l/min Lidocaine 2% added to field 20 Heparin Flush Bag added to field 2 bags (1000units/500ml NS) Radial Cocktail added to field 1 syringe (Verapamil 2mg/Nitro 400mcg/Heparin 1500units) Versed I.V. 2 mg Fentanyl I.V. 50 mcg Hemodynamics Rest Heart Rate: 60 (bpm) Pressure Samples Time Site Value (mmHg) Purpose Heart Use Rate(bpm) 8:39 LV 81/2,15 Snapshot 66 8:39 LV 116/1,12 Snapshot 66 8:40 LV 118/5,14 Snapshot 66 8:40 AO 99/60(81) Pullback 70 8:40 LV 97/9,10 Pullback 70 Gradients Valve Time Site 1 Site 2 Mean SEP/DFP Peak To Heart Use (mmHg) (sec/min) Peak Rate (mmHg) (bpm) Aortic 8:40 LV AO 0 4 0 70 97/9,10 99/60(81) Calculations Valve P-P Mean Valve Index Valve Source Name Gradient Area Flow (cm2) Aortic 0 0 0 0 Snapshots Pre Cath Intra NCS Post Cath Vital Signs Time Heart Resp SPO2 etCO2 NIBP (mmHg) Rhythm Pain Sedation Rate (ipm) (%) (mmHg) Status Level (bpm) 8:22:32 61 11 100 0 150/82(96) NSR 0 (11) 10(A) , No pain 8:26:54 58 5 100 0 144/73(117) SB 0 (11) 10(A) , No pain 8:31:10 57 12 100 27.7 130/77(92) SB 0 (11) 10(A) , No pain 8:35:28 57 11 100 9.7 132/59(103) SB 0 (11) 10(A) , No pain 8:39:44 68 14 100 29.2 127/66(94) NSR 0 (11) 10(A) , No pain 8:43:56 63 13 98 9.7 117/71(87) NSR 0 (11) 10(A) , No pain 8:48:06 67 11 99 29.9 127/69(87) NSR 0 (11) 10(A) , No pain 8:52:15 61 12 99 21.7 121/79(92) NSR 0 (11) 10(A) , No pain Medications Time Medication Route Dose Verified Delivered Reason Notes Ef fectiveness by by 8:21:46 0.9% NaCl I.V. 100 Ahsan Gallegoa used for ml/hr Pastora Aron procedure MD MALONEY 8:21:52 Oxygen etCO2 2 l/min Ahsan Gallegoa used for Nasal [place] Aron procedure cannula MD MALONEY 8:21:57 Lidocaine 2% added 20ml Ahsan Foreman for local to vial [facility] anesthetic field MD MUNROE 8:22:00 Heparin Flush added 2 bags Ahsan Foreman used for Bag to [facility] procedure (1000units/500ml field MD MUNROE NS) 8:22:08 Radial Cocktail added 1 Ahsan Foreman used for (Verapamil to syringe [facility] procedure 2mg/Nitro field MD MUNROE 400mcg/Heparin 1500units) 8:37:24 Versed I.V. 2 mg Ahsan Gallegoa for [facility] sedation MD MALONEY 8:37:28 Fentanyl I.V. 50 mcg Ahsan Coffey for [facility] sedation MD MALONEYcountry singer Log Time Note 7:58:36 Informed consent obtained and on chart 8:07:16 Procedure Status Elective Heart Cath (OP). 8:07:29 Erlinda Sharp RN sent for patient. Start room use. 8:07:31 Time tracking: Regular hours (M-F 7:00 - 5:00) 8:07:35 Plan of Care:Hemodynamics will remain stable., Cardiac rhythm will remain stable., Comfort level will be maintained., Respiratory function will remain adequate., Patient/ family verbilizes understanding of procedure., Procedure tolerated without complication., Recovers from procedure without complications.. 8:08:16 H&P Date Dictated: 01/07/2020 Within 30 days and on chart., H&P Addendum completed by physician on day of procedure. (MUST COMPLETE FOR ALL OUTPATIENTS). 8:08:34 Patient allergic to No known allergies 8:14:43 Patient received from Pre/Post Procedure Room to CCL 1 Alert and oriented. Tansferred to table in Supine position. 8:14:44 Warm blankets applied, and monty hugger turned on for patient comfort. 8:14:44 Correct patient and procedure confirmed by team. 8:14:45 ECG and BP/O2 sat monitors applied to patient. 8:21:24 Vital chart was started 8:21:46 0.9% NaCl 100 ml/hr I.V. was administered by Erlinda Sharp RN; used for procedure; Verbal order read back and verified. 8:21:52 Oxygen 2 l/min etCO2 Nasal cannula was administered by Erlinda Sharp RN; used for procedure; Verbal order read back and verified. 8:21:57 Lidocaine 2% 20ml vial added to field was administered by Ahsan Guillory MD; for local anesthetic; Verbal order read back and verified. 8:22:00 Heparin Flush Bag (1000units/500ml NS) 2 bags added to field was administered by Ahsan Guillory MD; used for procedure; Verbal order read back and verified. 8:22:08 Radial Cocktail (Verapamil 2mg/Nitro 400mcg/Heparin 1500units) 1 syringe added to field was administered by Ahsan Guillory MD; used for procedure; Verbal order read back and verified. 8:23:23 Baseline sample Acquired. 8:23:33 Full Disclosure recording started 8:23:36 Pre-procedure instructions explained to patient. 8:23:39 Family in patients room. 8:23:41 Patient NPO since Midnight. 8:23:43 Is the patient allergic to Iodine/contrast media? No. 8:23:45 Was the patient premedicated? Yes 8:23:46 Is patient on blood thinner?Yes 8:23:49 ACC The patient was administered the following blood thiners within the last 24 hours: ACCEffient 8:23:52 Patient diabetic? No. 8:24:00 Snore? Yes 8:24:02 Sleep apnea? Yes 8:24:08 Airway obstruction? No ? 8:24:15 Dentures? No ? 8:24:19 Patient pain scale 0/10 ?. 8:24:33 IV patent on arrival in left forearm with 0.9% NaCl at [facility]. 8:25:05 Right Radial & Right Groin area was prepped with chlora-prep and draped in sterile fashion 8:25:07 Alarms reviewed by Amy N. 8:25:07 Sharps counted by scrub and verified by Nasreen. 8:25:11 Physician paged 8:28:00 Physician arrived 8:36:25 --------ALL STOP TIME OUT------ 8:36:26 Final Timeout: patient, procedure, and site verified with staff and physician. All members of the team are in agreement. 8:36:29 Right Radial & Right Groin site verified by team. 8:36:33 Fire Safety Assessment: A--An alcohol-based skin anteseptic being used preoperatively., C--Open oxygen or nitrous oxide is being used., D--An ESU, laser, or fiber-optic light is being used. 8:36:37 Physical assessment completed. ASA score P 2 - A patient with mild systemic disease as per Ahsan Guillory MD. 8:37:02 Sedation plan: IV Moderate Sedation Medication:Versed, Fentanyl 8:37:07 Use device set Radial Dx or PCI 8:37:22 Procedure started. 8:37:24 Versed 2 mg I.V. was administered by Erlinda Sharp RN; for sedation; Verbal order read back and verified. 8:37:28 Fentanyl 50 mcg I.V. was administered by Erlinda Sharp RN; for sedation; Verbal order read back and verified. 8:37:31 ACIST Syringe (93811) opened to sterile field. 8:37:31 Medline Cath Pack ([id number]) opened to sterile field. 8:37:33 Bag Decanter (2002) opened to sterile field. 8:37:34 ACIST Hand Control (81390) opened to sterile field. 8:37:34 ACIST Manifold (74362) opened to sterile field. 8:37:37 MBrace Wrist Support (649704645) opened to sterile field. 8:37:39 EMERALD Guide Wire (471-180) opened to sterile field. 8:37:40 SHEATH 6FR RAIN (8470147) opened to sterile field. 8:38:05 Local anesthetic to right radial artery with Lidocaine 2% by Ahsan Guillory MD.INITIAL ACCESS ONLY 8:38:22 A 6 Fr Short sheath was inserted into the Right Radial artery 8:38:35 A DIAGNOSTIC [place] 110cm 5 Fr catheter (072114) was advanced over the wire and used for Procedure. 8:39:20 Zero performed for pressure channel P1 8:40:20 LV gram done using CAZARES 8:40:26 EF : 35 % 8:40:33 RCA angiography performed. 8:42:29 Catheter removed. 8:43:02 GUIDE 6FR XBLAD 3.5 catheter (94164302) opened to sterile field. 8:43:51 Proceeding to intervention. 8:44:06 6 Fr XBLAD3.5 guide catheter was inserted over the wire 8:46:30 TR BAND Standard (QGR13OAL) opened to sterile field. 8:49:37 multiple veiws taken with 6 fr for better visualization. 8:49:53 Guide catheter removed. 8:50:08 Sheath removed intact; hemostasis achieved with Mechanical Compression to the Right Radial artery. 8:50:25 Procedure ended.(Physican Out) 8:50:59 Flurop Dose total: 606 8:50:59 Fluoroscopy dose: 606 mGy 8:51:05 Dose Area Product 10766 mGy/cm. 8:51:11 Contrast amount:Isovue 300 68ml. 8:51:18 [place] band inflated with 10cc of air. 8:51:20 Insertion/operative site no bleeding no hematoma. 8:51:24 Post Procedure Pulses reassessed and unchanged 8:51:28 Post-procedure physical assessment completed. ASA score P 2 - A patient with mild systemic disease as per Ahsan Guillory MD. 8:51:31 Post procedure rhythm: unchanged. 8:51:34 Estimated blood loss: 10 ml 8:51:39 Post procedure instruction explained to patient.Patient verbalizes understanding. 8:51:59 Procedure type changed to Cath procedure, Diagnostic procedure, LHC, C w/Coronaries, Sedation Charges, Moderate Sedation up to 15 minutes 8:52:05 Procedure and supply charges have been captured, reviewed, submitted and are correct. 8:52:28 Procedure Complication : No complications 8:52:31 Vital chart was stopped 8:52:38 [facility] Findings: MVD- CABG consult 8:52:43 See physician's report for complete and final results. 8:52:44 Report given to Pre/Post Procedure Room. 8:52:54 Patient transfered to Pre/Post Procedure Room with Stretcher. 8:52:57 Procedure ended. 8:52:57 Full Disclosure recording stopped 8:53:03 End room use (Document Last) 8:55:07 Fluoroscopy time 00.00 minutes. Device Usage Item Name Manufacture Quantity Catalog Hospital Part Current Minima l Lot# / Number Charge Number Stock Stock Serial# Code [facility] 1 62984 555706 976780 [id number] 20 Syringe Medical (69661) Systems Inc Medline Medline 1 [id number] [id number] 38020 339103 5 Cath Pack ([id number]) Bag Microtek 1 466011 83810 849870 5 Decanter Medical Inc. () ACIST Hand Acist 1 50348 296302 654481 915854 5 Control Medical (12478) Systems Inc ACIST Acist 1 02903 681175 338028 729940 5 Manifold Medical (41450) Systems Inc MBrace Advanced 1 140-0250-00 788099 39598 373349 5 Wrist Vascular Support Dynamics ([id number]) EMERALD Cardinal 1 502-019 028863 486104 352893 5 Guide Wire Health (552-142) SHEATH 6FR Cardinal 1 [id number] 702164 0471805 356504 5 [facility] Health (7468332) DIAGNOSTIC Terumo 1 93-4989 277187 628819 001182 5 [place] 110cm 5 Fr catheter (632514) GUIDE 6FR Cardinal 1 [id number] 624922 147481 996158 10 XBLAD 3.5 Health catheter (56843690) TR BAND Terumo 1 [id number] 695411 177521 930073 40 Standard ([id number]) Signature Audit [place] Stage Time Signature Unsigned Intra-Procedure 01/29/2020 Yael Juarez 8:54:38 AM RT(R) Intra-Procedure 01/29/2020 Erlinda Sharp 8:55:08 AM RN Intra-Procedure 01/29/2020 Ahsan Iglesias 8:55:31 AM Daniel MUNROE [place] [address] [place] [address]
[2020-01-29] MEDS ORDERED: BAYER CHEWABLE81 MG PO (06:49)
[2020-01-29 07:09] VITALS: BP 149/79; BMI 24.8
[2020-01-29 07:44] LABS: BASOPHILS 0.2 % (0-2); EOSINOPHILS 3.2 % (0-7); HEMATOCRIT 44.1 % (42.0-54.0); HEMOGLOBIN 14.9 g/dL (13.5-17.5); IMMATURE GRANULOCYTES 0.2 % (0-5); LYMPHOCYTES 23.2 % (15-50); MCH 31.2 pg (26.0-34.0); MCHC 33.8 g/dL (31.0-37.0); MCV 92.3 fL (80.0-100.0); MEAN PLATELET VOLUME 10.6 fL (7.4-10.4); MONOCYTES 15.1 % (2-11); NEUTROPHILS 58.1 % (40-80); PLATELET COUNT 201 10x3/uL (130-400); RBC 4.78 10x6/uL (4.20-6.10); RDW 13.1 % (11.5-14.5); WBC 5.3 10x3/uL (4.8-10.8)
[2020-01-29 08:36] LABS: ANION GAP 11.8 mmol/L (8-16); CARBON DIOXIDE 23.8 mmol/L (21.0-32.0); CHOL - HDL RATIO 2.1 ratio (2.3-4.9); CREATININE - SERUM 1.1 mg/dL (0.6-1.3); LDL-HDL RATIO 0.9 ratio (1.5-3.5); POTASSIUM - SERUM 4.6 mmol/L (3.5-5.1)
--- NOTE | 2020-01-29 09:00 | NUR ---
PT RECEIVED VIA STRETCHER FROM ARABIC LINGUIST FOR RECOVERY. PT DROWSY, VERBALLY AROUSABLE. PT DENIES PAIN OR DISCOMFORT. IV PATENT INFUSING VIA L ARM PER ORDERS. PT PLACED ON CARDIAC MONITORS AND O2 VIA NC AT 2L. HR SB RATE 59, BP 124/68, RR 11, SAT 97. ZYPHER BAND AND IMMOBILIZER TO R WRIST/ARM, NO S/S HEMATOMA OR BLEEDING. ARM PINK AND WARM, CAP REFILL BRISK. CALL LIGHT IN REACH, AT BS.
--- NOTE | 2020-01-29 09:30 | NUR ---
PT RESTING COMFORTABLY. ZBAND AND IMMOBILIZER IN PLACE, NO S/S HEMATOMA OR BLEEDING NOTED. ARM PINK AND WARM, CAP REFILL BRISK. VSS AT PRESENT. CALL LIGHT IN REACH, AT BS
--- NOTE | 2020-01-29 10:15 | NUR ---
PT RESTING COMFORTABLY. ZBAND AND IMMOBILIZER IN PLACE, NO S/S HEMATOMA OR BLEEDING NOTED. CALL LIGHT IN REACH
--- NOTE | 2020-01-29 10:40 | NUR ---
DR GILLESPIE AT , DISCUSSING OPTIONS OF POTENTIAL CABG SURGERY. NO NEW ORDERS RECEIVED. 3CC AIR REMOVED FROM Z BAND NO BLEEDING OR S/S HEMATOMA NOTED. CRACKERS AND DRINK SERVED. PT DENIES PAIN OR NEEDS AT THIS TIME. VSS. CALL LIGHT IN REACH
--- NOTE | 2020-01-29 11:01 | NUR ---
3 ADD'L CC AIR REMOVED FROM Z BAND, NO BLEEDING NOTED.
--- NOTE | 2020-01-29 11:17 | NUR ---
DR FOX AT , DISCUSSED PROCEDURE RESULTS AND PLAN OF CARE. 2 MORE CC AIR REMOVED FROM Z BAND, NO BLEEDING NOTED. NO NEW ORDERS RECEIVED. IV REMOVED W CATH INTACT, MONITORS REMOVED. DISCHARGE INSTRUCTIONS REVIEWED W PT AND , BOTH VERBALIZED UNDERSTANDING..
--- NOTE | 2020-01-29 11:20 | NUR ---
PT UP TO DRESS FOR DISCHARGE W ASSIST FROM
--- NOTE | 2020-01-29 11:30 | NUR ---
PT AMBULATED TO BR, VOIDING W/O DIFFICULITY. ZBAND AND REMAINING AIR REMOVED, NO BLEEDING NOTED. 2X2 AND SM TEGADERM DRESSING APLIED. IMMOBILIZER REPOSTIONED. PT DISCHARGE VIA WC TO WAITING IN PRIVATE VEHICLE. PT HAD ALL BELONGINGS AND DISCHARGE INSTRUCTIONS
[2020-01-30 16:59] VITALS: Ht 182.9 cm; Wt 83.0 kg
--- NOTE | 2020-01-31 08:09 | OP ---
PATIENT NAME: MARIA G HERNANDEZ MEDICAL RECORD: [id number] :43 LOCATION:[facility] ADMISSION DATE: SURGEON: EDUARDO FOX MD DATE OF OPERATION: 01/29/2020 PROCEDURE: Left heart catheterization, selective coronary angiography, right radial approach. CATHETERS: Radial sheath, [place] catheter. The procedure was well tolerated. The patient returned to leon. Sheath removed. TR band was placed. FINDINGS: Left ventriculography in 30-degree CAZARES view shows anterior apical hypokinesis. Overall, function mildly reduced at 35% to 40%. CORONARY ANATOMY: LEFT MAIN: Left main is free of disease. LAD: Has maybe a 40% restenosis in its proximal portion. In mid portion of vessel, there is an elongated 80% stenosis with a good target distally. CIRCUMFLEX: Gives rise to a large OM that has a diffuse 80% stenosis in its proximal third. RIGHT CORONARY ARTERY: Has multiple areas of stenoses, most significant 80% for the takeoff of the PD and PL branches. IMPRESSION: Multivessel coronary artery disease, diffuse in nature, probably best suited for a bypass grafting. Dr. Cavazos is consulted for that purpose. TRANSINT:[id number] Voice Confirmation ID: [id number] DOCUMENT ID: [id number] EDUARDO FOX MD at 0809 CC: [id number] DICTATION DATE: 01/29/20 0852 PROGRAM OFFICER: 01/29/20 1222 [facility] 01/29/[address] [address]
== END 2020-01-29 11:30 | disposition home or self-care (01) ==
LOC: D.CATH 06:21
PROVIDERS: ATTEND Internal Medicine Interventional Cardiology
DX: I25.119 Atherosclerotic heart disease of native coronary artery with unspecified angina pectoris (principal); I10 Essential (primary) hypertension

== ENCOUNTER 2020-01-31 10:06 | Inpatient (IN) | payer MEDICARE, OTHER ==
[~2020-01-31] VITALS: Ht 182.9 cm; Wt 85.0 kg
[~2020-01-31 10:06] MED LIST changes: +BAYER CHEWABLE81 MG PO
[2020-01-31] MEDS ORDERED: PEPCID AC20 MG PO (11:07)
[2020-01-31 12:35] LABS: BASOPHILS 0.2 % (0-2); EOSINOPHILS 3.8 % (0-7); HEMATOCRIT 45.3 % (42.0-54.0); HEMOGLOBIN 15.3 g/dL (13.5-17.5); IMMATURE GRANULOCYTES 0.2 % (0-5); LYMPHOCYTES 23.1 % (15-50); MCH 31.4 pg (26.0-34.0); MCHC 33.8 g/dL (31.0-37.0); MEAN PLATELET VOLUME 9.9 fL (7.4-10.4); MONOCYTES 13.7 % (2-11); PLATELET COUNT 195 10x3/uL (130-400); RBC 4.87 10x6/uL (4.20-6.10); RDW 12.9 % (11.5-14.5); WBC 4.7 10x3/uL (4.8-10.8)
[2020-01-31 12:47] LABS: BILIRUBIN NEGATIVE (NEGATIVE); KETONE NEGATIVE (NEGATIVE); NITRITE NEGATIVE (NEGATIVE); UROBILINOGEN NORMAL (NORMAL)
[2020-01-31 12:50] LABS: APTT 37.4 SECONDS (22.8-39.4); INR 1.14 (0.85-1.17); PROTIME 14.5 SECONDS (11.6-15.0)
[2020-01-31 13:03] LABS: ALBUMIN 3.8 g/dL (3.4-5.0); BILIRUBIN - TOTAL 0.75 mg/dL (0.2-1.3); CALCIUM 9.2 mg/dL (8.5-10.1); CARBON DIOXIDE 30.7 mmol/L (21.0-32.0); CREATININE - SERUM 1.2 mg/dL (0.6-1.3); PHOSPHOROUS 2.7 mg/dL (2.5-4.9); POTASSIUM - SERUM 4.7 mmol/L (3.5-5.1); PROTEIN - SERUM 7.3 g/dL (6.4-8.2); T4 THYROXIN - FREE 1.13 ng/dL (0.76-1.46); THYROID STIMULATING HORMONE 2.92 uIU/mL (0.36-3.74); URIC ACID 6.2 mg/dL (2.6-7.2)
[2020-02-03] VITALS (45 sets, daily range): BP systolic 98–136; BP diastolic 48–68; BMI 23.2; BMI 23.3
--- NOTE | 2020-02-03 08:29 | NUR ---
0830 COMPUTERS WERE DOWN AT 0545. UNABLE TO DOCUMENT PREOP CHECKLIST. SURGERY TEAM AWARE CHECKLIST IS NOT DONE. PT TRANSPORTED VIA STRETCHER TO OR AT 0627.
--- NOTE | 2020-02-03 12:53 | NUR ---
PT ARRIVED IN THE UNIT FROM THE OR. PT HOOKED TO ICU MONITORS. NSR ON THE MONITOR. VSS. PT ON 3MCKG/KG/MIN OF DOPAMINE PLASMALYTE 100ML/H. PT HAS AN 8.0 ETT 25 AT THE LIP. SEE RT FLOW SHEET FOR VENT SETTINGS. RIGHT IJ CVL NOTED. C/D/I. MIDSTERNAL AND SUBSTERNAL DRESSING C/D/I. CT X2 BIFURCATED INTO A SINGLE TUBE NOTED CONNECTED TO 20 CM OF H2O SUCTION WITH NO AIR LEAK. LEFT SUBSTERNAL JENNIFER DRAIN NOTED. COMPRESSED. ALL TUBES HAVE BLOODY DRAINAGE NOTED. R RADIAL ALEXX NOTED WITH A WRIST PROTECTOR ON. CAP REFILL <3 SECONDS. GOOD WAVE FORM. FC NOTED WITH RED TINGED URINE. SCANT AMOUNT OF BLOOD OOZING FROM MEATUS. RLE HARVEST SITE NOTED. NABEEL NOTED TO RLE FROM ANKLE TO GROIN. BILATERAL DP AND PT PULSES PALPABLE. SCANT AMOUNT OF BLOODY DRAINAGE NOTED FROM THE RIGHT NOSTRIL. DR GILLESPIE AWARE. VSS WILL CONT POC.
--- NOTE | 2020-02-03 13:22 | NUR ---
TURN DOPAMINE OFF PER DR GILLESPIE
--- NOTE | 2020-02-03 13:30 | NUR ---
DR GILLESPIE AWARE OF ABG RESULTS. DO NOT TREAT K OR BE PER DR GILLESPIE.
--- NOTE | 2020-02-03 14:20 | NUR ---
PT SLOWLY WAKING UP. RESPONDS TO VERBAL STIMULI. ABLE TO MOVE HIS HANDS AND FEET BILATERALY. FOLLOWS COMMANDS. WILL CONT POC/MONITOR.
--- NOTE | 2020-02-03 15:50 | NUR ---
PT FOLLOWING COMMANDS AND ALERT. RT AT THE PTS BEDSIDE. VENT CHANGED TO SPONT MODE. PT BREATHING WELL. WILL CONT POC.
--- NOTE | 2020-02-03 16:03 | NUR ---
AT THE PTS BEDSIDE. SHE WAS UPDATED ON THE PTS CONDITION.
--- NOTE | 2020-02-03 16:42 | NUR ---
DR GILLESPIE CALLED WITH ABG RESULTS. EXTUBATED AND OBTAIN AN ABG IN 1HOUR.
--- NOTE | 2020-02-03 16:50 | NUR ---
PT EXTUBATED TO 3L VIA NC. BLOODY SPUTUM AND BLOOD CLOTS NOTED. ORAL CAVITY SUCTION WITH BLOODY DRAINAGE NOTED. DR GILLESPIE AWARE. VSS. WILL CONT POC.
--- NOTE | 2020-02-03 16:55 | NUR ---
1255-INITATED VENT 14/500/100/5 1320-DECREASED FIO2 40% 1412-DECREASED RATE 12 1445-DECREASED RATE 10 1515-DECREASED RATE 8 1550-CPAP 10/5 40% (PIP 15/MEAN 8.4/ I:E 1:4.3/ RATE 14/ VT 404/ VE 6.84/ RSBI 29/ HR 82/ SPO2 100%) 1645-EXTUBATED TO 3L
--- NOTE | 2020-02-03 16:59 | NUR ---
REDDNESS NOTED AT THE BACK OF THE PATIENTS THROAT. NO BLEEDING NOTED. WILL CONT POC.
--- NOTE | 2020-02-03 18:16 | NUR ---
ABG RESULTS RECEIVED. DR GILLESPIE PAGED AND AWARE OF RESULTS. GIVE 1/2 AMP HCO3 AND GIVE 250ML PLASMALYTE BOLUS OVER 30 MINS.
--- NOTE | 2020-02-03 18:17 | NUR ---
DAVID IN THE AM PER DR GILLESPIE
[2020-02-04] VITALS (45 sets, daily range): BP systolic 92–136; BP diastolic 45–91; Ht 182.9 cm; Wt 85.0 kg
--- NOTE | 2020-02-04 01:00 | NUR ---
PT DANGLED ON SIDE OF BED, TOLERATED WELL.
--- NOTE | 2020-02-04 04:55 | NUR ---
PT FAMILY MEMBER CALLED, PASSWORD PROVIDED AND VERIFIED. UPDATED ON PT STATUS.
[2020-02-04 05:58] LABS: HEMATOCRIT 36.7 % (42.0-54.0); HEMOGLOBIN 12.2 g/dL (13.5-17.5); MCH 30.9 pg (26.0-34.0); MCHC 33.2 g/dL (31.0-37.0); MCV 92.9 fL (80.0-100.0); MEAN PLATELET VOLUME 10.6 fL (7.4-10.4); RBC 3.95 10x6/uL (4.20-6.10); RDW 13.4 % (11.5-14.5); WBC 20.1 10x3/uL (4.8-10.8)
[2020-02-04 06:40] LABS: ALBUMIN 2.6 g/dL (3.4-5.0); ANION GAP 12.2 mmol/L (8-16); BILIRUBIN - TOTAL 0.84 mg/dL (0.2-1.3); CALCIUM 7.6 mg/dL (8.5-10.1); CARBON DIOXIDE 25.3 mmol/L (21.0-32.0); CREATININE - SERUM 1.4 mg/dL (0.6-1.3); POTASSIUM - SERUM 4.5 mmol/L (3.5-5.1); PROTEIN - SERUM 5.6 g/dL (6.4-8.2)
--- NOTE | 2020-02-04 08:30 | NUR ---
SPOKE WITH AMARA BOND (DR. GILLESPIE'S NURSE) ABOUT URINE OUTPUT ORDERED TO GIVE 500 PLASMOLYTE PER PHYSICIAN ORDER OVER TWO HOURS.
--- NOTE | 2020-02-04 10:16 | OP ---
PATIENT NAME: MARIA G HERNANDEZ MEDICAL RECORD: [id number] :43 LOCATION:D.CVI D.CV06 ADMISSION DATE:02/03/20 SURGEON: WILMER GILLESPIE MD DATE OF OPERATION: 02/03/2020 SURGEON: Wilmer Gillespie MD PROCEDURE PERFORMED: 1. Coronary artery bypass graft times 4 (left internal mammary artery to LAD, reverse saphenous vein graft from aorta to obtuse marginal, from the side of that vein graft to the first diagonal distally and from aorta to posterior descending artery). 2. Endoscopic saphenous vein harvest. PREOPERATIVE DIAGNOSES: Moderate ischemic cardiomyopathy with history of myocardial infarction and multivessel coronary artery disease. POSTOPERATIVE DIAGNOSES: Moderate ischemic cardiomyopathy with history of myocardial infarction and multivessel coronary artery disease. ANESTHESIA: General endotracheal anesthesia. ESTIMATED BLOOD LOSS: Total cardiopulmonary bypass with Cell Saver retransfusion. COMPLICATIONS: None. SPECIMENS: None. CONDITION: Stable. DISPOSITION: CV ICU. OPERATIVE FINDINGS: 1. Transesophageal echocardiography revealed better ejection fraction than that seen on the recent ventriculogram, up to 50% before cardiopulmonary bypass and 55% after coronary artery bypass graft. 2. Severe distal disease in all vessels. 3. LAD 2.0 mm with severe disease. 4. Obtuse marginal 1.75 mm with severe distal disease beyond the bifurcation. 5. First diagonal small 1.25 with severe disease end-to-side to the obtuse marginal graft. 6. Posterior descending artery 1.5 mm. INDICATION: Unstable angina, positive stress test, previous myocardial infarction with ischemic cardiomyopathy and multivessel coronary artery disease. DESCRIPTION OF PROCEDURE: The patient was brought to the operating suite. General anesthesia was obtained. The patient was prepped and draped. Greater saphenous vein harvested endoscopically from the right lower extremity. Side branch divided with electrocautery. Vessel was ligated proximally and distally removed. Side branches were tied. The leg was later closed in 2 layers after irrigation. Mediastinotomy incision was made. Subcutaneous tissue divided with OPERATIVE REPORT [id number] MARIA G HERNANDEZ electrocautery. Sternum was divided with a saw. Left hemisternum was elevated. Left pleural cavity was entered. Left internal mammary artery and vein was taken down as a pedicle graft. Sternal retractor was placed. Pericardium was opened. Standard cannulation after heparinization and the internal mammary was clipped and made ready for anastomosis. Sites for distal anastomoses were selected on pump. Antegrade cardioplegia cannula was inserted. The patient was cooled. Crossclamp was placed. Cardioplegia was given. Cardioplegia was then repeated at 15 to 20 minute intervals including down the completed vein grafts. Distal anastomosis was performed in standard technique. Proximal anastomosis with single cross-clamp technique. Then, the crossclamp was removed. De-airing was performed. Single [id number] to the diagonal graft off the obtuse marginal graft. The patient was in a sinus rhythm. Atrial and ventricular pacing wires were placed. Initially atrial paced due to bradycardia, but eventually with a normal sinus rhythm and was weaned from cardiopulmonary bypass. The patient was decannulated. The cannula sites were hemostatic and a pledgeted suture was placed in the aortic cannulation site. Protamine was given. The graft lay appropriately. Hemostasis was ensured including the internal mammary artery bed. Drain was placed in the mediastinum with the tips in both upper chest cavities. Pericardial fat was loosely reapproximated. Left chest was evacuated and irrigated. Sternum was closed with wires. Fascia was closed. Subcutaneous tissues were closed. Skin was closed. Dermabond was placed. The needle and sponge counts were reported as correct and the patient was taken to ICU in stable condition. TRANSINT:[id number] Voice Confirmation ID: [id number] DOCUMENT ID: [id number] WILMER GILLESPEI MD at 1016 CC: REECE PRUITT and EDUARDO FOX MD [id number] DICTATION DATE: 02/03/20 1527 SITE COORDINATOR: 02/04/20 0305 ADM IN [place] [id number] [place] [address]
--- NOTE | 2020-02-04 19:55 | NUR ---
FAMILY CALLED, PROVIDED CALL IN CODE. UPDATE PROVIDED AND QUESTIONS ANSWERED.
--- NOTE | 2020-02-04 21:30 | NUR ---
DR. GILLESPIE NOTIFIED OF PT GOING INTO ATRIAL FIB 150-160'S. AMIODARONE BOLUS AND INFUSION INITIATED.
[2020-02-05] VITALS (24 sets, daily range): BP systolic 90–122; BP diastolic 40–62
[2020-02-05 06:10] LABS: MCH 31.4 pg (26.0-34.0); MCHC 33.8 g/dL (31.0-37.0); MCV 92.9 fL (80.0-100.0); MEAN PLATELET VOLUME 10.4 fL (7.4-10.4); RDW 13.4 % (11.5-14.5); WBC 16.3 10x3/uL (4.8-10.8)
[2020-02-05 06:15] LABS: HEMATOCRIT 28.7 % (42.0-54.0); HEMOGLOBIN 9.7 g/dL (13.5-17.5); RBC 3.09 10x6/uL (4.20-6.10)
[2020-02-05 06:50] LABS: ALBUMIN 2.2 g/dL (3.4-5.0); ALKALINE PHOSPHATASE 63 U/L (30-120); ALT (SGPT) 18 U/L (10-68); BILIRUBIN - TOTAL 0.39 mg/dL (0.2-1.3); CALC OSMOLALITY 276 mosm/kg (275-300); CALCIUM 7.7 mg/dL (8.5-10.1); CARBON DIOXIDE 27.8 mmol/L (21.0-32.0); CHLORIDE - SERUM 103 mmol/L (98-107); GLUCOSE 123 mg/dL (74-106); POTASSIUM - SERUM 4.4 mmol/L (3.5-5.1); PROTEIN - SERUM 5.3 g/dL (6.4-8.2); SODIUM 136 mmol/L (136-145); UREA NITROGEN 23 mg/dL (7-18); eGFR NON AFRICAN AMERICAN 77 mL/min (90-120)
--- NOTE | 2020-02-05 07:30 | NUR ---
Shift report received. Up in chair. Rates pain 0/10 at this time. On 2L O2 via NC. Midsternal incision c/d/i. Substernal CTX2 TO 20cm suction, no air leak noted. Aleksander drain in place, dressing c/d/i. RLE harvest sites CHEMA. Ha catheter in place. Safety measures in place. Will continue to monitor.
--- NOTE | 2020-02-05 07:37 | CN ---
PATIENT NAME:MARIA G HERNANDEZ MEDICAL RECORD: [id number] : 43 LOCATION:MONAID.CV06 ADMIT DATE: 02/03/20 ACCOUNT: [id number] CONSULTING PHYSICIAN: REECE PRUITT MD REFERRING PHYSICIAN: WILMER GILLESPIE MD DATE OF CONSULTATION: 02/04/2020 MEDICAL CONSULT ADMITTING PHYSICIAN: Wilmer Gillespie MD REASON FOR CONSULTATION: Medical management, postoperative CABG. HISTORY OF PRESENT ILLNESS: The patient is a 74-year-old male with previous history of coronary artery disease. He had symptoms recently of shortness of breath and some mild chest tightness and ordered a cardiac cath by Dr. Carter last week, which showed multivessel disease, not felt amendable to serial stenting. He elected to have surgery, underwent bypass grafting by Dr. Gillespie yesterday afternoon. He has been stable postoperatively in sinus rhythm, is complaining of minimal pain. He has been up to the bedside in a chair currently. He denies nausea, vomiting, headache or motor sensory deficits. PAST MEDICAL HISTORY: Rita-Cullen tear 08/2017, history of gastric ulcer with Hemoclips placed and upper GI bleed requiring transfusion, CAD, PTCA in the past restenosis of the LAD, which he had been on Effient, remote IN, BPH, diverticulitis, hyperlipidemia, hypothyroidism, ED, ophthalmic migraines. PAST SURGICAL HISTORY: Hernia repair, lumbar laminectomy, left inguinal hernia repair with mesh in 2014, Hemoclips placed for gastric bleeder 02/2018, remote PTCA and now CABG. FAMILY HISTORY: Father at 96 from CAD, prostate cancer. Mother with history of CAD, hypertension. 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 He is a nonsmoker, rare wine drinker. ALLERGIES: None mentioned. MEDICATIONS: Effient 10 mg p.o. daily, atorvastatin 40 mg at bedtime, Coreg 6.25 mg p.o. b.i.d., valsartan 80 mg p.o. at bedtime, aspirin 81 mg daily, famotidine 20 mg p.o. at bedtime, levothyroxine 25 mcg p.o. every morning before meals. REVIEW OF SYSTEMS: CONSTITUTIONAL: He has been fatigued recently. No fever. HEENT: No recent visual change, sinus congestion, or sore throat. RESPIRATORY: He has had mild short of breath with exertion. Denies sputum production or hemoptysis. CARDIAC: Exertional chest discomfort as mentioned. No recent claudication. GASTROINTESTINAL: Recent carotid Doppler showed less than 50% bilateral stenosis. He had no nausea, vomiting of stools, blood per rectum or melena. GENITOURINARY: Nocturia once nightly, mild ED. MUSCULOSKELETAL: Has arthralgias in the lumbar spine, no sciatica. INTEGUMENT: No rash or itching. CONSULT REPORT [id number] MARIA G HERNANDEZ PSYCHIATRIC: Denies depressed mood. No history of stroke, TIA, vascular headaches, or seizures. PHYSICAL EXAMINATION: VITAL SIGNS: Blood pressure is 112/50, pulse is 96 and regular, respirations are 18, O2 sat of 97% on 2 liters. GENERAL: The patient is alert and oriented postoperative without neuro deficits. HEENT: Normocephalic. Eyes are clear, nonicteric. Oropharynx unremarkable. NECK: Supple, without bruits. CHEST: Decreased breath sounds in the right base with chest tube noted. HEART: Regular rate and rhythm without gallop. Sternotomy incision is clean. ABDOMEN: Soft, nontender. GENITOURINARY: Shows no scrotal edema. EXTREMITIES: Does show surgical donor sites clean in both legs. No edema. NEUROLOGICAL: Oriented to person, place, and time. Cranial nerves are intact. Gait is not tested. Currently, he is sitting up in a chair with no obvious motor or sensory deficits. LABORATORY AND DIAGNOSTIC DATA: Shows white count of 20,000, H&H of 12 and 36.7. BMP shows BUN 24, creatinine 1.4. Blood sugar is 155. ABG showed a pH of 7.36, pO2 of 87, pCO2 33.8 on 3 liters nasal cannula. INR 1.14. Urine unremarkable. Postoperative chest x-ray showed interval coronary artery bypass surgical changes with supportive devices in good position, minimal atelectasis and small bilateral pleural effusions. ASSESSMENT: 1. Postoperative day 1 post-coronary artery bypass grafting for multivessel coronary artery disease. 2. History of remote myocardial infarction, hypothyroidism, hyperlipidemia and hypertension. PLAN: We will follow him medically with you. Thank you for this consult. TRANSINT:[id number] Voice Confirmation ID: [id number] DOCUMENT ID: [id number] REECE PRUITT MD at 0737 CC: [id number] DICTATION DATE: 02/04/20 0748 MANUAL ARTS THERAPIST: 02/04/20 1341 ADM IN [facility] [address] [id number]
--- NOTE | 2020-02-05 07:58 | TEE ---
PATIENT:MARIA G HERNANDEZ MEDICAL RECORD: [id number] LOCATION:[place] [address] AGE OF PATIENT: 74 ADMISSION DATE: 02/03/20 SEX: M REFERRING PHYSICIAN: INTERPRETING PHYSICIAN: EDUARDO FOX MD TRANSESOPHAGEAL ECHOCARDIOGRAM Date: 02/03/20 LATOYA CHARGE Y INDICATIONS: CABG PREMEDICATIONS: PATIENT'S RESPONSE PROCEDURE DOPPLER MEASUREMENTS: LVIT LA PA RA LVOT RVOT Asc. Ao AV Gradient Peak AV Mean AV Area MV Gradient Peak MV Mean MV Area INTERPRETATION: Doppler: 2-D: COLOR FLOW DOPPLER NORMAL SALINE STUDY: MISCELLANOUS: DIAGNOSIS: PLAN: Fast Food Cook:3 Dr. Hightower Juvenile Corrections Officer: Alexandra NOLASCO COMMENTS: DATE OF SERVICE: 02/03/2020 PROCEDURE: Intraoperative LATOYA. Preoperatively, shows LV with anterior hypokinesis. Overall, function mildly reduced at 45% to 50%. Aortic valve is tricuspid with good valve excursion. Mitral valve shows trace MR. Postoperatively, shows improvement in anterior wall function with EF probably 50% to 55%. Aortic valve with good valve excursion. Mitral valve with trivial MR. TRANSESOPHAGEAL ECHOCARDIOGRAM REPORT [id number] MARIA G HERNANDEZ TRANSINT:[id number] Voice Confirmation ID: [id number] DOCUMENT ID: [id number] at 0758 CC: [id number] DICTATION DATE: 02/03/20 1338 CARGO BROKER: 02/04/20 1115 ADM IN [facility] [address] [id number]
--- NOTE | 2020-02-05 10:03 | NUR ---
Pt went into uncontrolled a-fib with hr 120s. Dr. Cavazos notified. Orders received.
--- NOTE | 2020-02-05 11:12 | NUR ---
Nutrition Follow-up: POD 2 CABG. Pt reports swallowing improved but still not eating much; ate small amt of solids this AM. Denies N/V. -BM/flatus. Diet: Clears -> Regular Wt: 179.5# (02/04) Labs noted: Glu 123, Ca 7.7, Alb 2.2 Meds noted: Protonix, Senokot, Colace, Zofran -Regular diet as tolerated. -Encourage PO intake and honor food preferences. -Monitor wt. -RD following.
--- NOTE | 2020-02-05 11:51 | NUR ---
Call received from Eboni williamson's sister. Passcode verified. Update given. Pt resting comfortably in bed. Denies any needs at this time. Hr 70s normal sinus.
--- NOTE | 2020-02-05 16:06 | NUR ---
Transferred back to bed. CT pulled by Dr. Cavazos. Pt tolerated well. Spouse at bedside. Will continue to monitor.
--- NOTE | 2020-02-05 16:51 | NUR ---
Meal tray delivered. Pt does not want to eat at this time. Meal tray left in room.
--- NOTE | 2020-02-05 18:12 | NUR ---
CHG bath given. Complete linen change provided. Ha care provided. Tolerated well. No further needs at this time.
--- NOTE | 2020-02-05 19:00 | NUR ---
REPOSITIONED FOR COMFORT. COUGH/DB/IS COMPLETED WITH GOOD EFFORT. DENIES PAIN AT THIS TIME. CPOC.
[2020-02-06] VITALS (28 sets, daily range): BP systolic 96–125; BP diastolic 40–83
[2020-02-06 05:33] LABS: HEMATOCRIT 26.5 % (42.0-54.0); MCH 31.4 pg (26.0-34.0); MCV 92.3 fL (80.0-100.0); MEAN PLATELET VOLUME 10.8 fL (7.4-10.4); RBC 2.87 10x6/uL (4.20-6.10); RDW 13.3 % (11.5-14.5); WBC 12.5 10x3/uL (4.8-10.8)
--- NOTE | 2020-02-06 06:00 | NUR ---
UP TO CHAIR WITH MINIMAL ASSISTANCE, TOLERATED WELL. COMPLETE LINEN CHANGE. FRESH WATER TO BEDSIDE. COUGH/DB/IS COMPLETED WITH GOOD EFFORT. CPOC.
[2020-02-06 06:15] LABS: ALBUMIN 2.1 g/dL (3.4-5.0); ANION GAP 8.8 mmol/L (8-16); BILIRUBIN - TOTAL 0.41 mg/dL (0.2-1.3); CALCIUM 7.9 mg/dL (8.5-10.1); CARBON DIOXIDE 28.4 mmol/L (21.0-32.0); CREATININE - SERUM 1.1 mg/dL (0.6-1.3); POTASSIUM - SERUM 4.2 mmol/L (3.5-5.1); PROTEIN - SERUM 5.4 g/dL (6.4-8.2)
--- NOTE | 2020-02-06 07:22 | NUR ---
Shift report received. Sitting up in chair. A&OX4. Rates pain 1/10 at incision site. No fever. VSS. On 2L O2 via nc. RIJ saline lock, dressing intact. Midsternal incision with dressin c/d/i. Substernal hillary drain, dressing intact. RLE harvest sites CHEMA, well approximated. Ha catheter in place with yellow urine noted. TAMANNA's on bilateral LE. Safety measures in place. Call light in reach. Will continue to monitor.
--- NOTE | 2020-02-06 08:50 | NUR ---
Uncontrolled a-fib with hr 130-50s noted. Dr. Cavazos notified. Amiodarone 150mg bolus ordered.
--- NOTE | 2020-02-06 08:54 | NUR ---
Call received from Eboni pt's sister. Passcode verified. Update given.
--- NOTE | 2020-02-06 09:51 | NUR ---
Hr 80-81 normal sinus. Pt resting comfortably. Will continue to monitor.
--- NOTE | 2020-02-06 17:00 | NUR ---
Ambulated back to bed with assist. Pulled up and repositioned for comfort. Ate about 10% of dinner. No further needs at this time.
--- NOTE | 2020-02-06 17:30 | NUR ---
Substernal dressing changed per orders. Previous CT sites closed. Pivodine ointment applied to area. Bio patch applied to tpm wires. Pt tolerated well. Will continue to monitor.
[2020-02-07] VITALS (16 sets, daily range): BP systolic 90–140; BP diastolic 47–73
[2020-02-07 05:31] LABS: HEMATOCRIT 26.2 % (42.0-54.0); HEMOGLOBIN 8.8 g/dL (13.5-17.5); MCH 31.1 pg (26.0-34.0); MCHC 33.6 g/dL (31.0-37.0); MCV 92.6 fL (80.0-100.0); MEAN PLATELET VOLUME 10.4 fL (7.4-10.4); RBC 2.83 10x6/uL (4.20-6.10); RDW 13.3 % (11.5-14.5); WBC 9.6 10x3/uL (4.8-10.8)
[2020-02-07 06:03] LABS: ALKALINE PHOSPHATASE 69 U/L (30-120); ALT (SGPT) 20 U/L (10-68); BILIRUBIN - TOTAL 0.75 mg/dL (0.2-1.3); CALC OSMOLALITY 271 mosm/kg (275-300); CARBON DIOXIDE 28.7 mmol/L (21.0-32.0); CHLORIDE - SERUM 100 mmol/L (98-107); GLUCOSE 112 mg/dL (74-106); POTASSIUM - SERUM 4.5 mmol/L (3.5-5.1); PROTEIN - SERUM 5.4 g/dL (6.4-8.2); SODIUM 134 mmol/L (136-145); UREA NITROGEN 20 mg/dL (7-18); eGFR NON AFRICAN AMERICAN 77 mL/min (90-120)
--- NOTE | 2020-02-07 10:24 | NUR ---
Nutrition Follow-up: POD 4 CABG. Poor PO intake. Pt continues to report difficulty swallowing. Requests Ensure. -BM; unsure about flatus. Diet: Regular PO intake: 10-40% recorded yesterday Wt: 188.4# (02/06) Labs noted: Na 134, Glu 112, Ca 8.0, Alb 2.0 Meds noted: Protonix, Senokot, Colace -Encourage PO intake and honor food preferences. -+Ensure with meals. -Pt may benefit from [employer] eval. -Monitor wt. -RD following.
--- NOTE | 2020-02-07 13:08 | NUR ---
ENCOURAGED INCENTIVE SPIROMETRY-ABLE TO DO 1000ML--NOTED NIBP 98/58
--- NOTE | 2020-02-07 19:19 | MORECARE ---
CASE MANAGEMENT DISCHARGE SUMMARY PATIENT: MARIA G HERNANDEZ UNIT: [id number] ADM DATE: 02/03/20 AGE: 74 : 44 SEX: M [facility] AUTHOR: RULA CELESTE PHYSICIAN: REFERRING PHYSICIAN: SOPHIA GILLESPIE MD DATE OF SERVICE: 02/07/20 Discharge Plan Patient Name: MARI AG HERNANDEZ [facility] [facility] 1945 Planned Disposition: Home Anticipated Discharge Date: Discharge Date: Expected LOS: Initial Reviewer: [email or web address] Initial Review Date: 02/03/2020 Generated: 02/07/20 8:19 pm Patient Name: MARIA G HERNANDEZ Page [id number] at 1918 All edits/amendments must be made on the electronic document DICTATION DATE: 02/07/201918 RN TEACHER: YAMILKA 02/07/201918 RPT#: [id number] DC DATE: STATUS: ADM IN [facility] [address] [place] [address] END OF REPORT
--- NOTE | 2020-02-07 19:26 | MORECARE ---
CASE MANAGEMENT DISCHARGE SUMMARY PATIENT: MARIA G HERNANDEZ UNIT: [id number] ADM DATE: 02/03/20 AGE: 74 : 44 SEX: M ROOM/BED: D[facility] AUTHOR: BOOKER,DOC PHYSICIAN: REFERRING PHYSICIAN: SOPHIA GILLESPIE MD DATE OF SERVICE: 02/07/20 Discharge Plan Patient Name: MARIA G HERNANDEZ Facility: [facility]:[place] : 1945 Planned Disposition: Home Anticipated Discharge Date: Discharge Date: Expected LOS: Initial Reviewer: [email or web address] Initial Review Date: 02/03/2020 Generated: 02/07/20 8:25 pm Comments DCP- Discharge Planning Updated by [email or web address]: Zoraida Blackburn on 02/07/20 6:[address] Patient Name: MARIA G HERNANDEZ Admission Status: Urgent Accout number: [id number] Admission Date: 02-03-2020 : 1945 Admission Diagnosis:ATHSCL HEART DISEASE OF [place] CORONARY ARTERY W/O ANG Attending: SOPHIA GILLESPIE Current LOS: 4 Anticipated DC Date: Planned Disposition: Home Primary Insurance: MEDICARE A & B Discharge Planning Comments: CM met with patient to complete initial dc planning assessment. CM educated patient on the CM role and verbal consent given by patient to complete assessment. Patient lives at home with family. Patient is independent. At discharge patient plans to return home and feels this is a safe discharge. CM discussed availability of home health, rehab services, and medical equipment. Patient will have family to transport home. Patient denied known discharge needs at this time. CM will continue to follow and will assist as needed with dc plans/needs. Real Estate Agency Principal: Zoraida Blackburn DCPIA - Discharge Planning Initial Assessment Updated by [email or web address]: Zoraida Blackburn on 02/07/20 7:21 pm * Is the patient Alert and Oriented? Yes * How many steps to enter\exit or inside your home? * PCP KYRGYZ * Pharmacy [facility] * Preadmission Environment Home with Family * ADLs Independent * Equipment CPAP * List name and contact numbers for known caregivers / representatives who currently or will assist patient after discharge: NGUYEN HERNANDEZ - [phone] * Verbal permission to speak to the caregivers and representatives has been obtained from the patient. Yes * Community resources currently utilized None * Additional services required to return to the preadmission environment? No * Can the patient safely return to the preadmission environment? Yes * Has this patient been hospitalized within the prior 30 days at any hospital? No Last DP export: 02/07/20 6:19 pm Patient Name: MARIA G HERNANDEZ Page [id number] at 1926 All edits/amendments must be made on the electronic document DICTATION DATE: 02/07/201924 LAUNCH OPERATOR: YAMILKA 02/07/201924 RPT#: [id number] DC DATE: STATUS: ADM IN [facility] [address] [place] [address] END OF REPORT
[2020-02-08] VITALS (14 sets, daily range): BP systolic 103–152; BP diastolic 47–76
--- NOTE | 2020-02-08 04:30 | NUR ---
TO RADIOLOGY FOR PA AND LATERAL, TOLERATED WELL
--- NOTE | 2020-02-08 04:30 | NUR ---
PT AWAKE, REQUESTING TO "GET UP AND GET GOING THIS MORNING", PT ASSISTED OVER TO RECLINER, WARM BLANKET PROVIDED PER REQUEST.
[2020-02-08 06:40] LABS: HEMATOCRIT 27.6 % (42.0-54.0); HEMOGLOBIN 9.3 g/dL (13.5-17.5); MCHC 33.7 g/dL (31.0-37.0); RDW 13.6 % (11.5-14.5); WBC 10.2 10x3/uL (4.8-10.8)
[2020-02-08 07:00] LABS: ALBUMIN 2.1 g/dL (3.4-5.0); ANION GAP 10.2 mmol/L (8-16); BILIRUBIN - TOTAL 0.86 mg/dL (0.2-1.3); CALCIUM 8.4 mg/dL (8.5-10.1); CARBON DIOXIDE 29.2 mmol/L (21.0-32.0); CREATININE - SERUM 1.2 mg/dL (0.6-1.3); POTASSIUM - SERUM 4.4 mmol/L (3.5-5.1); PROTEIN - SERUM 5.8 g/dL (6.4-8.2)
--- NOTE | 2020-02-08 20:23 | NUR ---
0800-DR CASTELLON NOTIFED OF [facility]-ORDER RECIEVED AND NOTED -PT STATED NOT AWARE OF IRREGULAR HR 0815-20G R UPPER ARM IV STARTED-CORDARONE 150MG IV BOLUS PER POLICY STARTED PT ASSISTED TO BED-HR 127- 0915-REMAINS IN UNCONTROLLED AFIB 110-PHYSICAL THERAPY HELD AT THIS TIME 1030-SPONT CONVERSION TO SR- 1100-BLADDER TRAINING STARTED-MONDRAGON CLAMPED AND PT DIRECTED TO NOTIFY NURSE WHEN URGE TO VOID OCCURS 1230-CLAMP RELEASED PER PT REQUEST-DRAINED 500ML-PROCESS REPEATED 1500-CLAMP RELEASED-PER PT REQUEST-DRAINED 300 ML- 1545-CATHETER D/C'D PER PROTOCOL 1930-PT VOIDED 100ML
[2020-02-09] VITALS (11 sets, daily range): BP systolic 98–147; BP diastolic 54–82
[2020-02-09 07:28] LABS: HEMATOCRIT 29.1 % (42.0-54.0); HEMOGLOBIN 9.8 g/dL (13.5-17.5); MCH 30.9 pg (26.0-34.0); MCHC 33.7 g/dL (31.0-37.0); MCV 91.8 fL (80.0-100.0); MEAN PLATELET VOLUME 10.2 fL (7.4-10.4); RBC 3.17 10x6/uL (4.20-6.10); RDW 13.5 % (11.5-14.5); WBC 11.4 10x3/uL (4.8-10.8)
[2020-02-09 07:56] LABS: ALBUMIN 2.3 g/dL (3.4-5.0); BILIRUBIN - TOTAL 1.06 mg/dL (0.2-1.3); CALCIUM 8.4 mg/dL (8.5-10.1); CARBON DIOXIDE 26.6 mmol/L (21.0-32.0); CREATININE - SERUM 1.3 mg/dL (0.6-1.3); PROTEIN - SERUM 6.2 g/dL (6.4-8.2)
[2020-02-09 08:00] LABS: POTASSIUM - SERUM 3.6 mmol/L (3.5-5.1)
--- NOTE | 2020-02-09 18:41 | NUR ---
1136-DR CASTELLON AT [facility] AND SPOKE WITH PT AND REGARDING PLANS FOR DISCHARGE-DISCUSSED CAUSES OF AFIB-LIKELIHOOD OF DEVELOPING POST CARDIAC SURGERY- 8102-PT AMBULATING FREELY IN
[2020-02-10] VITALS: BP 116/60
[2020-02-10 02:00] VITALS: BP 126/62
[2020-02-10 04:41] LABS: HEMATOCRIT 28.5 % (42.0-54.0); HEMOGLOBIN 9.4 g/dL (13.5-17.5); MCH 30.4 pg (26.0-34.0); MCV 92.2 fL (80.0-100.0); RBC 3.09 10x6/uL (4.20-6.10); RDW 13.7 % (11.5-14.5); WBC 11.1 10x3/uL (4.8-10.8)
[2020-02-10 04:58] LABS: ALBUMIN 2.3 g/dL (3.4-5.0); BILIRUBIN - TOTAL 1.01 mg/dL (0.2-1.3); CALCIUM 8.3 mg/dL (8.5-10.1); CARBON DIOXIDE 28.8 mmol/L (21.0-32.0); CREATININE - SERUM 1.3 mg/dL (0.6-1.3); POTASSIUM - SERUM 3.8 mmol/L (3.5-5.1); PROTEIN - SERUM 6.1 g/dL (6.4-8.2)
--- NOTE | 2020-02-10 08:45 | NUR ---
Nutrition Follow-up: POD 7 CABG. Eating breakfast at time of visit this AM. Reports swallowing issues improving. Drinking ~1 Ensure/day. Diet: Regular, Ensure with meals PO intake: 46% avg x 6 meals Wt: 187# (02/09) Last BM: 02/08 Labs noted: Na 134, Ca 8.3, Alb 2.3 Meds noted: Lasix, Senokot, Colace -Encourage PO intake and honor food preferences within diet restrictions. -Monitor wt. -RD following.
--- NOTE | 2020-02-10 09:11 | NUR ---
dr sanders at bedside
--- NOTE | 2020-02-10 09:27 | NUR ---
PATIENT AMBULATING FREELY.
--- NOTE | 2020-02-10 10:40 | NUR ---
patient ambulated with no assist up and down robert. no acute distress. room air.
[2020-02-10] MEDS ORDERED: AMIODARONE HCL200 MG PO (10:42)
[2020-02-10] MEDS ORDERED: PERCOCET 5-3251 TAB PO (10:44)
--- NOTE | 2020-02-10 12:02 | NUR ---
PATIENT DISCHARGED VIA WHEELCHAIR. ALL FORMS SIGNED AND PUT IN CHART
--- NOTE | 2020-02-11 16:04 | MORECARE ---
CASE MANAGEMENT DISCHARGE SUMMARY PATIENT: MARIA G HERNANDEZ UNIT: [id number] ADM DATE: 02/03/20 AGE: 74 : 44 SEX: M ROOM/BED: D.[facility] AUTHOR: BOOKER,DOC PHYSICIAN: REFERRING PHYSICIAN: SOPHIA GILLESPIE MD DATE OF SERVICE: 02/11/20 Discharge Plan Patient Name: MARIA G HERNANDEZ Facility: [facility]:[place] : 1945 Planned Disposition: Home Anticipated Discharge Date: Discharge Date: 02/10/2020 Expected LOS: Initial Reviewer: [email or web address] Initial Review Date: 02/03/2020 Generated: 02/11/20 5:03 pm Comments DCP- Discharge Planning Updated by [email or web address]: Zoraida Blackburn on 02/07/20 6:[address] Patient Name: MARIA G HERNANDEZ Admission Status: Urgent Accout number: [id number] Admission Date: 02-03-2020 : 1945 Admission Diagnosis:ATHSCL HEART DISEASE OF [place] CORONARY ARTERY W/O ANG Attending: SOPHIA GILLESPIE Current LOS: 4 Anticipated DC Date: Planned Disposition: Home Primary Insurance: MEDICARE A & B Discharge Planning Comments: CM met with patient to complete initial dc planning assessment. CM educated patient on the CM role and verbal consent given by patient to complete assessment. Patient lives at home with family. Patient is independent. At discharge patient plans to return home and feels this is a safe discharge. CM discussed availability of home health, rehab services, and medical equipment. Patient will have family to transport home. Patient denied known discharge needs at this time. CM will continue to follow and will assist as needed with dc plans/needs. Hvac Service Tech: Zoraida Blackburn DCPIA - Discharge Planning Initial Assessment Updated by [email or web address]: Zoraida Blackburn on 02/07/20 7:21 pm * Is the patient Alert and Oriented? Yes * How many steps to enter\exit or inside your home? * PCP TAJIK * Pharmacy [facility] * Preadmission Environment Home with Family * ADLs Independent * Equipment CPAP * List name and contact numbers for known caregivers / representatives who currently or will assist patient after discharge: NGUYEN HERNANDEZ - [phone] * Verbal permission to speak to the caregivers and representatives has been obtained from the patient. Yes * Community resources currently utilized None * Additional services required to return to the preadmission environment? No * Can the patient safely return to the preadmission environment? Yes * Has this patient been hospitalized within the prior 30 days at any hospital? No Last DP export: 02/07/20 6:26 pm Patient Name: MARIA G HERNANDEZ Page [phone] at 1604 All edits/amendments must be made on the electronic document DICTATION DATE: 02/11/20 1603 NURSE ORTHOPAEDIC: YAMILKA 02/11/20 1603 RPT#: [id number] DC DATE:02/10/20 STATUS: DIS IN [facility] [address] [place] [address] END OF REPORT
== END 2020-02-10 12:05 | disposition home or self-care (01) | DRG 236 ==
LOC: D.CVICU 02-03 05:27 → D.SDCHOLD 02-03 05:27 → D.CVICU 02-03 11:54
PROVIDERS: ADMIT Thoracic Surgery (Cardiothoracic Vascular Surgery); ATTEND Thoracic Surgery (Cardiothoracic Vascular Surgery)
PROC: 021209W Bypass Coronary Artery, Three Arteries from Aorta with Autologous Venous Tissue, Open Approach (ICD-10-PCS; 2020-02-03)
PROC: 06BP4ZZ Excision of Right Saphenous Vein, Percutaneous Endoscopic Approach (ICD-10-PCS; 2020-02-03)
PROC: B24BZZ4 Ultrasonography of Heart with Aorta, Transesophageal (ICD-10-PCS; 2020-02-03)
PROC: 5A1221Z Performance of Cardiac Output, Continuous (ICD-10-PCS; 2020-02-03)
PROC: 02100Z9 Bypass Coronary Artery, One Artery from Left Internal Mammary, Open Approach (ICD-10-PCS; principal; 2020-02-03 07:30)
DX: I25.110 Atherosclerotic heart disease of native coronary artery with unstable angina pectoris (principal); I48.0 Paroxysmal atrial fibrillation; E03.9 Hypothyroidism, unspecified

== ENCOUNTER → 2020-03-04 09:27 | Outpatient (CLI) | payer MEDICARE, OTHER ==
[2020-02-04 10:19] VITALS: BMI 23.3
[~2020-03-04 09:27] MED LIST changes: +AMIODARONE HCL200 MG PO; +PEPCID AC20 MG PO; +PERCOCET 5-3251 TAB PO
[2020-03-04 10:13] LABS: BASOPHILS 0.5 % (0-2); EOSINOPHILS 1.5 % (0-7); HEMATOCRIT 38.3 % (42.0-54.0); HEMOGLOBIN 12.4 g/dL (13.5-17.5); IMMATURE GRANULOCYTES 0.3 % (0-5); LYMPHOCYTES 17.2 % (15-50); MCH 31.1 pg (26.0-34.0); MCHC 32.4 g/dL (31.0-37.0); MEAN PLATELET VOLUME 9.7 fL (7.4-10.4); MONOCYTES 13.7 % (2-11); NEUTROPHILS 66.8 % (40-80); PLATELET COUNT 281 10x3/uL (130-400); RBC 3.99 10x6/uL (4.20-6.10); RDW 14.8 % (11.5-14.5)
[2020-03-04 10:26] LABS: ANION GAP 8.2 mmol/L (8-16); CALCIUM 8.9 mg/dL (8.5-10.1); CARBON DIOXIDE 28.2 mmol/L (21.0-32.0); CREATININE - SERUM 1.6 mg/dL (0.6-1.3); POTASSIUM - SERUM 4.4 mmol/L (3.5-5.1)
== END | disposition home or self-care (01) ==
LOC: D.RAD 09:27
PROVIDERS: ATTEND Thoracic Surgery (Cardiothoracic Vascular Surgery)
DX: Z95.1 Presence of aortocoronary bypass graft (principal)

== ENCOUNTER 2020-08-17 12:55 | Day surgery (SDC) | payer MEDICARE, OTHER ==
[~2020-08-17] VITALS: Ht 180.3 cm; Wt 77.3 kg
--- NOTE | ~2020-08-17 | OP ---
PATIENT NAME: MARIA G HERNANDEZ MEDICAL RECORD: [id number] :43 [facility] DATE: SURGEON: FAIZAN SANDERSON DO DATE OF OPERATION: 08/17/2020 PROCEDURE: EGD with balloon dilation and biopsies. INDICATION FOR PROCEDURE: Melena. SCOPE: Olympus video gastroscope. MEDICATIONS: Propofol 120 mg IV per anesthesia. ESTIMATED BLOOD LOSS: Minimal. COMPLICATIONS: None. FINDINGS: Informed consent was given. The patient was made comfortable with the above medication. After reaching an adequate level of sedation by slow IV push, the patient was placed on his left side. The endoscope was advanced under direct visualization through the mouth to the second portion of the duodenum with ease. The esophagus appeared normal down to the GE junction. At the GE junction, there was a Schatzki's ring present. The ring was dilated using a CRE dilating balloon up to 18 mm maximum diameter successfully. The endoscope was advanced beyond the GE junction into the stomach and retroflexed to view the cardia and fundus. There was a small sliding hiatal hernia without ulcerations or other abnormalities present. The fundus and proximal body of the stomach appeared normal. In the distal body and down to the antrum and prepyloric region, there was some erythema and granularity consistent with mild chronic gastritis changes. There were no ulcerations present and no bleeding lesions. Cold forceps biopsies were taken from the antrum and incisura to submit for histopathology and to rule out the presence of H. pylori. The endoscope was advanced beyond the pylorus into the duodenum, which appeared normal to the second portion. Cold forceps biopsies were taken to submit for histopathology. The endoscope was withdrawn from the patient. The patient tolerated the procedure well and there were no complications. IMPRESSION: 1. Nonobstructing Schatzki's ring, status post dilation up to 18 mm in maximum diameter. 2. Small sliding hiatal hernia. 3. Mild chronic gastritis changes. 4. There was no bleeding on this examination and no lesions identified to explain the recent bleeding. It is possible that some gastritis alone could be a source and this has gotten better with use of twice daily Protonix over the past week and a half. PLAN AND RECOMMENDATIONS: 1. Discharge home when recovery parameters are met. 2. Follow up biopsy specimen results. 3. GERD diet and reflux precautions. 4. Continue current medications. 5. Recommend continuing PPI therapy for a total of 30-60 days. 6. Defer further use of anticoagulant medications to Dr. Diaz and cardiology. OPERATIVE REPORT [id number] MARIA G HERNANDEZ TRANSINT:[id number] Voice Confirmation ID: [id number] DOCUMENT ID: [id number] FAIZAN SANDERSON DO CC: [id number] DICTATION DATE: 08/17/20 1521 LINE REPAIRER: 08/17/20 1727 [facility] 08/17/20 [place] [id number]
[2020-08-17 13:29] LABS: HEMATOCRIT 45.5 % (42.0-54.0); HEMOGLOBIN 15.3 g/dL (13.5-17.5); MCH 30.5 pg (26.0-34.0); MCHC 33.6 g/dL (31.0-37.0); MCV 90.6 fL (80.0-100.0); MEAN PLATELET VOLUME 10.2 fL (7.4-10.4); RBC 5.02 10x6/uL (4.20-6.10); RDW 14.4 % (11.5-14.5); WBC 6.5 10x3/uL (4.8-10.8)
[2020-08-17 13:35] LABS: APTT 23.6 SECONDS (22.8-39.4); INR 1.27 (0.85-1.17); PROTIME 14.7 SECONDS (11.6-15.0)
[2020-08-17] MEDS ORDERED: PROTONIX20 MG PO (13:41)
[2020-08-17 13:45] VITALS: BP 149/88; Ht 180.3 cm; Wt 77.3 kg
--- NOTE | 2020-08-17 15:40 | NUR ---
1538 DR MARIA E GUALLPA
== END 2020-08-17 16:10 | disposition home or self-care (01) ==
LOC: D.OPS 12:55
PROVIDERS: Anesthesiology; ATTEND Internal Medicine Gastroenterology
DX: K92.1 Melena (principal); K22.2 Esophageal obstruction; K44.9 Diaphragmatic hernia without obstruction or gangrene; K29.50 Unspecified chronic gastritis without bleeding

== ENCOUNTER → 2020-08-31 13:48 | Outpatient (CLI) | payer MEDICARE, OTHER ==
[2020-08-17 13:45] VITALS: BMI 23.7
[~2020-08-31 13:48] MED LIST changes: +PROTONIX20 MG PO
== END | disposition home or self-care (01) ==
LOC: D.US 13:30
PROVIDERS: ATTEND Internal Medicine Interventional Cardiology
DX: R42 Dizziness and giddiness (principal); R51.9 Headache, unspecified